=== PATIENT | female | born 1945 | race Caucasian/White ===

== ENCOUNTER 2016-09-12 18:59 | Inpatient (IN) | payer MEDICARE ==
[~2016-09-12] VITALS: Ht 154.9 cm; Wt 54.0 kg
[~2016-09-12 18:59] MED LIST: ASCO10004 PO; ASPI-496 PO; CETI10CA PO; CHOL10002 PO; DIPH25CA61 PO; FERR134T2 PO; FESO4TAB PO; GABA100C8 PO; LANS15CA45 PO; LEVO75TA PO; MONT10TA9 PO; MULT-658 PO; PANT40TA5 PO; RANI150T4 PO; SIMV10TA3 PO; SITA1TAB PO; TOPI50TA4 PO; VENL225T PO; VENL75CA6 PO; VITA1CAP PO
[2016-09-12 20:00] LABS: HEMOGLOBIN 13.9 g/dL (11.7-16.4)
[2016-09-12 20:09] LABS: BLOOD UREA NITROGEN 18 mg/dL (7-18)
[2016-09-12 20:13] LABS: ASPARTATE AMINO TRANSFERASE 15 U/L (15-37)
[2016-09-12] MEDS ORDERED: oxygen INH (20:55)
[2016-09-12] MEDS ORDERED: VENL75TA PO (20:55)
[2016-09-12] MEDS ORDERED: SITA1TAB5 PO (20:55)
[2016-09-12] MEDS ORDERED: SUMA100T4 PO (20:55)
[2016-09-12] MEDS ORDERED: FAMOTIDINE 20 MG/2 ML ONE (21:22)
[2016-09-12] MEDS ORDERED: MAALOX/HYOSCYAMINE/LIDOCAINE 45 ML BOTTLE ONE (21:22)
[2016-09-12] MEDS ORDERED: ONDANSETRON 2MG/ML, 2ML ONE (21:22)
[2016-09-12] MEDS ORDERED: SODIUM CHLORIDE FLUSH 10ML SYR IVF ONE (21:30)
[2016-09-12] MEDS ORDERED: ONDANSETRON 2MG/ML, 2ML IVPush ONE (21:30)
[2016-09-12] MEDS ORDERED: FAMOTIDINE 20 MG/2 ML IVP ONE (21:30)
[2016-09-12] MEDS ORDERED: SODIUM CHLORIDE 0.9% 1,000ML IVBOLUS ONE (21:30)
[2016-09-12] MEDS ORDERED: MAALOX/HYOSCYAMINE/LIDOCAINE 45 ML BOTTLE PO ONE (21:30)
[2016-09-12] MEDS ORDERED: CEFTRIAXONE PMX 1GM/50ML 50 ML IV ONE (22:00)
[2016-09-12] MEDS ORDERED: CEFTRIAXONE PMX 1GM/50ML 50 ML ONE (22:03)
[2016-09-13] MEDS ORDERED: LABETALOL 5MG/ML, 20ML IV PRN
[2016-09-13] MEDS ORDERED: TRAZODONE 50MG TABLET PO PRN
[2016-09-13] MEDS ORDERED: POLYETHYLENE GLYCOL 17 GM PACKET PO PRN
[2016-09-13] MEDS ORDERED: BISACODYL 10 MG SUPP PR PRN
[2016-09-13] MEDS ORDERED: ONDANSETRON ODT 4 MG PO PRN
[2016-09-13 00:22] VITALS: BP 121/74
[2016-09-13] MEDS: SUMATRIPTAN MC SCH ×4 (00:30→21:38)
[2016-09-13] MEDS: SODIUM CHLORIDE 0.9% 1,000 ML IV SCH ×2 (00:56→08:44)
[2016-09-13 01:05] VITALS: BP 132/68
[2016-09-13 05:14] VITALS: BP 143/81
[2016-09-13] MEDS: LEVOTHYROXINE 75 MCG TABLET PO SCH (05:54)
[2016-09-13] MEDS: ENOXAPARIN 40 MG/0.4 ML SQ SCH (05:55)
[2016-09-13 06:36] LABS: HEMOGLOBIN 13.2 g/dL (11.7-16.4)
[2016-09-13] MEDS: INSULIN ASPART 100 UNITS/ML, PEN SQ-INSULIN SCH ×4 (07:00→21:15)
[2016-09-13 07:03] LABS: ASPARTATE AMINO TRANSFERASE 21 U/L (15-37); BLOOD UREA NITROGEN 11 mg/dL (7-18)
[2016-09-13 07:27] VITALS: BP 126/78
[2016-09-13] MEDS: CHOLECALCIFEROL 1,000 UNIT TABLET PO SCH (08:46)
[2016-09-13] MEDS: MULTIVITAMIN 1 TABLET PO SCH (08:46)
[2016-09-13] MEDS: TOPIRAMATE 25 MG TABLET PO SCH ×2 (08:46→21:17)
[2016-09-13] MEDS: GABAPENTIN 100 MG CAPSULE PO SCH (08:46)
[2016-09-13] MEDS: VENLAFAXINE 75MG TABLET PO SCH ×2 (08:46→21:17)
[2016-09-13] MEDS: PANTOPROZOLE 40MG TABLET PO SCH (08:46)
[2016-09-13] MEDS: SUMATRIPTAN 50 MG TABLET PO SCH ×2 (08:46→21:17)
[2016-09-13] MEDS: FESOTERODINE FUMARATE 4 MG PO SCH (08:54)
[2016-09-13] MEDS: ACETAMINOPHEN 325 MG TABLET PO PRN ×2 (11:53→22:36)
[2016-09-13 14:29] VITALS: BP 130/76
[2016-09-13] MEDS ORDERED: ALBUTEROL SULFATE 2.5 MG/3 ML NPPB PRN (16:00)
[2016-09-13 18:58] VITALS: BP 101/66
[2016-09-13] MEDS: SIMVASTATIN 10 MG TABLET PO SCH (21:17)
[2016-09-13] MEDS: MONTELUKAST 10 MG TABLET PO SCH (21:17)
[2016-09-13] MEDS: CEFTRIAXONE PMX 2GM/50ML 50 ML IV SCH (21:30)
[2016-09-13] MEDS ORDERED: SODIUM CHLORIDE 0.9% 1,000 ML IV SCH (23:47)
[2016-09-14 02:25] VITALS: BP 138/92
[2016-09-14 06:08] LABS: BLOOD UREA NITROGEN 13 mg/dL (7-18)
[2016-09-14] MEDS: ENOXAPARIN 40 MG/0.4 ML SQ SCH (06:10)
[2016-09-14] MEDS: LEVOTHYROXINE 75 MCG TABLET PO SCH (06:10)
[2016-09-14 07:02] VITALS: BP 121/67
[2016-09-14] MEDS: SUMATRIPTAN MC SCH ×2 (08:30→16:30)
[2016-09-14] MEDS: SUMATRIPTAN 50 MG TABLET PO SCH ×2 (09:00→20:18)
[2016-09-14] MEDS: FESOTERODINE FUMARATE 4 MG PO SCH (09:00)
[2016-09-14] MEDS: GABAPENTIN 100 MG CAPSULE PO SCH (09:30)
[2016-09-14] MEDS: MULTIVITAMIN 1 TABLET PO SCH (09:30)
[2016-09-14] MEDS: CHOLECALCIFEROL 1,000 UNIT TABLET PO SCH (09:31)
[2016-09-14] MEDS: PANTOPROZOLE 40MG TABLET PO SCH (09:31)
[2016-09-14] MEDS: VENLAFAXINE 75MG TABLET PO SCH ×2 (09:31→20:17)
[2016-09-14] MEDS: TOPIRAMATE 25 MG TABLET PO SCH ×2 (09:31→20:14)
[2016-09-14] MEDS: DOCUSATE 100 MG CAPSULE PO PRN (09:31)
[2016-09-14] MEDS: INSULIN ASPART 100 UNITS/ML, PEN SQ-INSULIN SCH ×4 (09:43→20:20)
[2016-09-14] MEDS: ACETAMINOPHEN 325 MG TABLET PO PRN ×2 (11:26→23:16)
[2016-09-14 13:28] VITALS: BP 137/80
[2016-09-14 18:40] VITALS: BP 108/69
[2016-09-14] MEDS: MONTELUKAST 10 MG TABLET PO SCH (20:15)
[2016-09-14] MEDS: CEFDINIR 300 MG CAPSULE PO SCH (20:16)
[2016-09-14] MEDS: SIMVASTATIN 10 MG TABLET PO SCH (20:16)
[2016-09-14] MEDS: CEFTRIAXONE PMX 2GM/50ML 50 ML IV SCH (21:57)
[2016-09-15] MEDS: SUMATRIPTAN MC SCH ×2 (00:30→08:30)
[2016-09-15 00:49] VITALS: BP 147/71
[2016-09-15] MEDS: LEVOTHYROXINE 75 MCG TABLET PO SCH (05:02)
[2016-09-15] MEDS: ENOXAPARIN 40 MG/0.4 ML SQ SCH (05:02)
[2016-09-15 06:49] VITALS: BP 120/76
[2016-09-15] MEDS: INSULIN ASPART 100 UNITS/ML, PEN SQ-INSULIN SCH ×2 (07:00→12:21)
[2016-09-15] MEDS: FESOTERODINE FUMARATE 4 MG PO SCH (08:37)
[2016-09-15] MEDS: SUMATRIPTAN 50 MG TABLET PO SCH (09:00)
[2016-09-15] MEDS: GABAPENTIN 100 MG CAPSULE PO SCH (09:54)
[2016-09-15] MEDS: PANTOPROZOLE 40MG TABLET PO SCH (09:54)
[2016-09-15] MEDS: DOCUSATE 100 MG CAPSULE PO PRN (09:54)
[2016-09-15] MEDS: CEFDINIR 300 MG CAPSULE PO SCH (09:54)
[2016-09-15] MEDS: MULTIVITAMIN 1 TABLET PO SCH (09:55)
[2016-09-15] MEDS: VENLAFAXINE 75MG TABLET PO SCH (09:55)
[2016-09-15] MEDS: TOPIRAMATE 25 MG TABLET PO SCH (09:55)
[2016-09-15] MEDS: CHOLECALCIFEROL 1,000 UNIT TABLET PO SCH (09:57)
[2016-09-15] MEDS ORDERED: CEFD300C2 PO (11:35)
[2016-09-15 14:41] VITALS: BP 148/79
== END 2016-09-15 15:55 | DRG 690 ==
LOC: ED 22:33 → EDIP 22:34 → ED 23:07 → 4WST 09-13 00:11
PROVIDERS: ADMIT Internal Medicine; ATTEND Internal Medicine
PROC: 0T9B70Z Drainage of Bladder with Drainage Device, Via Natural or Artificial Opening (ICD-10-PCS; principal; 2016-09-12)
DX: N39.0 Urinary tract infection, site not specified (principal); E87.1 Hypo-osmolality and hyponatremia; E03.9 Hypothyroidism, unspecified; F32.9 Major depressive disorder, single episode, unspecified; E78.5 Hyperlipidemia, unspecified; F80.81 Childhood onset fluency disorder; J44.9 Chronic obstructive pulmonary disease, unspecified; K21.9 Gastro-esophageal reflux disease without esophagitis; I10 Essential (primary) hypertension; J45.909 Unspecified asthma, uncomplicated; E11.65 Type 2 diabetes mellitus with hyperglycemia; E55.9 Vitamin D deficiency, unspecified; N32.81 Overactive bladder; W18.30XA Fall on same level, unspecified, initial encounter; B99.9 Unspecified infectious disease; G89.29 Other chronic pain; M54.9 Dorsalgia, unspecified; G43.909 Migraine, unspecified, not intractable, without status migrainosus; Z91.041 Radiographic dye allergy status; Z91.012 Allergy to eggs; Z91.013 Allergy to seafood; Z83.3 Family history of diabetes mellitus; Z90.49 Acquired absence of other specified parts of digestive tract; Z90.710 Acquired absence of both cervix and uterus; Z80.9 Family history of malignant neoplasm, unspecified; Z82.49 Family history of ischemic heart disease and other diseases of the circulatory system; E86.1 Hypovolemia
CPT/HCPCS: 36415; 70450; 80048; 80053; 81001; 82962; 83036; 83735; 84439; 84443; 85025; 87086; 93005; 96365; 96375; J0696; J1650; J1815; J2405; J7030; S0028

== ENCOUNTER 2016-11-18 13:01 | Inpatient (IN) | payer MEDICARE ==
[~2016-11-18] VITALS: Ht 154.9 cm; Wt 55.9 kg
[~2016-11-18 13:01] MED LIST changes: +CEFD300C37 PO; +SITA1TAB5 PO; +SUMA100T4 PO; -TOPI50TA4 PO; +TOPI50TA77 PO; +VENL75TA PO; +oxygen INH
[2016-11-18] MEDS ORDERED: MECLIZINE CHEWABLE 25 MG TAB PO ONE (13:30)
[2016-11-18] MEDS ORDERED: SODIUM CHLORIDE FLUSH 10ML SYR IVF ONE (13:30)
[2016-11-18] MEDS ORDERED: ASPIRIN 81 MG TABLET CHEW PO ONE (13:30)
[2016-11-18] MEDS ORDERED: SODIUM CHLORIDE 0.9% 1,000ML IVBOLUS ONE (13:30)
[2016-11-18] MEDS ORDERED: MECLIZINE CHEWABLE 25 MG TAB ONE (13:32)
[2016-11-18] MEDS ORDERED: ASPIRIN 81 MG TABLET CHEW ONE (13:32)
[2016-11-18 13:54] LABS: BLOOD UREA NITROGEN 10 mg/dL (7-18)
[2016-11-18 14:01] LABS: ASPARTATE AMINO TRANSFERASE 19 U/L (15-37)
[2016-11-18 14:03] LABS: IS PT STATUS REG ER OR PRE ER? YES
[2016-11-18] MEDS ORDERED: ASPIRIN 325 MG TABLET EC PO ONE (17:00)
[2016-11-18] MEDS ORDERED: ACETAMINOPHEN 650 MG/20.3 ML UDC PO PRN (17:00)
[2016-11-18] MEDS ORDERED: SODIUM CHLORIDE 0.9% 1,000 ML IV SCH ×2 (17:30→19:59)
[2016-11-18] MEDS: INSULIN ASPART 100 UNITS/ML, PEN SQ-INSULIN SCH ×2 (17:30→22:53)
[2016-11-18] MEDS ORDERED: GLUCAGON 1 MG IM PRN (17:30)
[2016-11-18] MEDS ORDERED: DEXTROSE 50%, 50ML SYRINGE IVPush PRN (17:30)
[2016-11-18] MEDS ORDERED: DEXTROSE 4 GM TAB.CHEW PO PRN (17:30)
[2016-11-18] MEDS ORDERED: ASPIRIN 325 MG TABLET ONE (18:20)
[2016-11-18] MEDS ORDERED: ENOXAPARIN 40 MG/0.4 ML ONE (18:20)
[2016-11-18] MEDS: ENOXAPARIN 40 MG/0.4 ML SQ SCH (18:24)
[2016-11-18] MEDS: SODIUM CHLORIDE FLUSH 10ML SYR IVF SCH (21:00)
[2016-11-18] MEDS: SUMATRIPTAN 50 MG TABLET PO PRN (21:05)
[2016-11-18] MEDS: SIMVASTATIN 10 MG TABLET PO SCH (22:29)
[2016-11-18] MEDS: MONTELUKAST 10 MG TABLET PO SCH (22:29)
[2016-11-18] MEDS: VENLAFAXINE 75MG TABLET PO SCH (22:29)
[2016-11-18] MEDS ORDERED: GABAPENTIN 100 MG CAPSULE PO SCH (22:30)
[2016-11-18] MEDS ORDERED: ACETAMINOPHEN 325 MG TABLET ONE (22:42)
[2016-11-18] MEDS: DIAZEPAM 5 MG TABLET PO PRN (22:48)
[2016-11-18] MEDS: GABAPENTIN 100 MG CAPSULE PO SCH (22:52)
[2016-11-18 23:15] VITALS: BP 130/81
[2016-11-19] MEDS ORDERED: ACETAMINOPHEN 325 MG TABLET PO PRN (00:30)
[2016-11-19 03:46] VITALS: BP 156/87
[2016-11-19 03:54] LABS: ASPARTATE AMINO TRANSFERASE 16 U/L (15-37); BLOOD UREA NITROGEN 12 mg/dL (7-18)
[2016-11-19 03:57] LABS: IS PT STATUS REG ER OR PRE ER? NO
[2016-11-19] MEDS: INSULIN ASPART 100 UNITS/ML, PEN SQ-INSULIN SCH ×4 (07:00→21:17)
[2016-11-19] MEDS: PANTOPROZOLE 40MG TABLET PO SCH (08:35)
[2016-11-19] MEDS: VENLAFAXINE 75MG TABLET PO SCH ×2 (08:35→21:13)
[2016-11-19] MEDS: LEVOTHYROXINE 75 MCG TABLET PO SCH (08:35)
[2016-11-19] MEDS: MULTIVITAMIN 1 TABLET PO SCH (08:35)
[2016-11-19] MEDS: SODIUM CHLORIDE FLUSH 10ML SYR IVF SCH ×3 (08:36→21:12)
[2016-11-19 08:59] VITALS: BP 125/78
[2016-11-19] MEDS ORDERED: FESOTERODINE FUMARATE 4 MG PO SCH (09:00)
[2016-11-19] MEDS ORDERED: GABAPENTIN 100 MG CAPSULE PO SCH (09:00)
[2016-11-19 09:38] LABS: IS PT STATUS REG ER OR PRE ER? NO
[2016-11-19] MEDS: SUMATRIPTAN 50 MG TABLET PO PRN ×2 (10:35→22:01)
[2016-11-19] MEDS: DIAZEPAM 5 MG TABLET PO PRN (12:10)
[2016-11-19] MEDS ORDERED: REGADENOSON 0.4 MG/5 ML SYRINGE ONE (12:33)
[2016-11-19] MEDS ORDERED: GADOBUTROL 7.5 MMOL/7.5 ML PFS ONE (12:38)
[2016-11-19 15:11] VITALS: BP 136/80
[2016-11-19] MEDS: ENOXAPARIN 40 MG/0.4 ML SQ SCH (17:17)
[2016-11-19 18:32] VITALS: BP 117/48
[2016-11-19] MEDS: SIMVASTATIN 10 MG TABLET PO SCH (21:13)
[2016-11-19] MEDS: GABAPENTIN 100 MG CAPSULE PO SCH (21:13)
[2016-11-19] MEDS: MONTELUKAST 10 MG TABLET PO SCH (21:13)
[2016-11-20 01:30] VITALS: BP 140/77
[2016-11-20 09:30] VITALS: BP 146/85
[2016-11-20] MEDS: SODIUM CHLORIDE FLUSH 10ML SYR IVF SCH (09:30)
[2016-11-20] MEDS: INSULIN ASPART 100 UNITS/ML, PEN SQ-INSULIN SCH ×2 (09:30→13:07)
[2016-11-20] MEDS: LEVOTHYROXINE 75 MCG TABLET PO SCH (09:30)
[2016-11-20] MEDS: MULTIVITAMIN 1 TABLET PO SCH (09:30)
[2016-11-20] MEDS: VENLAFAXINE 75MG TABLET PO SCH (09:30)
[2016-11-20] MEDS: PANTOPROZOLE 40MG TABLET PO SCH (09:30)
[2016-11-20] MEDS: SUMATRIPTAN 50 MG TABLET PO PRN (16:39)
== END 2016-11-20 17:22 | disposition home health service (06) | DRG 92 ==
LOC: ED 13:55 → EDIP 15:45 → 5SO 19:50
PROVIDERS: ADMIT Family Medicine; ATTEND Family Medicine
DX: R27.0 Ataxia, unspecified (principal); I24.9 Acute ischemic heart disease, unspecified; E44.1 Mild protein-calorie malnutrition; I50.30 Unspecified diastolic (congestive) heart failure; R42 Dizziness and giddiness; E03.9 Hypothyroidism, unspecified; E11.65 Type 2 diabetes mellitus with hyperglycemia; E78.5 Hyperlipidemia, unspecified; F32.9 Major depressive disorder, single episode, unspecified; F80.81 Childhood onset fluency disorder; G43.909 Migraine, unspecified, not intractable, without status migrainosus; G89.29 Other chronic pain; M54.9 Dorsalgia, unspecified; J44.9 Chronic obstructive pulmonary disease, unspecified; K21.9 Gastro-esophageal reflux disease without esophagitis; M25.78 Osteophyte, vertebrae; Z83.3 Family history of diabetes mellitus; Z86.73 Personal history of transient ischemic attack (TIA), and cerebral infarction without residual deficits; I11.0 Hypertensive heart disease with heart failure; Z68.23 Body mass index [BMI] 23.0-23.9, adult; Z88.3 Allergy status to other anti-infective agents; Z91.013 Allergy to seafood; Z91.018 Allergy to other foods
CPT/HCPCS: 36415; 70450; 70553; 71010; 72125; 78452; 80053; 80061; 81003; 82962; 83036; 83880; 84484; 85025; 85610; 93005; 93017; 93306; 93880; 96360; A9585; J1650; J1815; J2785; 92522-GN; A9502; C9898; J7030

== ENCOUNTER 2017-01-03 16:25 | Inpatient (IN) | payer MEDICARE ==
[~2017-01-03] VITALS: Ht 154.9 cm; Wt 53.5 kg
[~2017-01-03 16:25] MED LIST changes: +GABA-826 PO; -GABA100C8 PO
[2017-01-03] MEDS ORDERED: SODIUM CHLORIDE 0.9% 1,000ML IVBOLUS ONE ×2 (17:30→20:30)
[2017-01-03] MEDS ORDERED: DIPHENHYDRAMINE 50 MG/ML, 1ML ONE (17:30)
[2017-01-03] MEDS ORDERED: DIPHENHYDRAMINE 50 MG/ML, 1ML IVPush ONE ×2 (17:30→20:30)
[2017-01-03] MEDS ORDERED: SODIUM CHLORIDE FLUSH 10ML SYR IVF ONE (17:30)
[2017-01-03] MEDS ORDERED: METOCLOPRAMIDE 5 MG/ML, 2ML IVPush ONE (17:30)
[2017-01-03] MEDS ORDERED: METOCLOPRAMIDE 5 MG/ML, 2ML ONE (17:30)
[2017-01-03] MEDS ORDERED: KETOROLAC 30 MG/1 ML ONE (17:45)
[2017-01-03] MEDS ORDERED: KETOROLAC 30 MG/1 ML IVPush ONE ×2 (18:00→20:30)
[2017-01-03 18:12] LABS: BLOOD UREA NITROGEN 15 mg/dL (7-18)
[2017-01-03 18:17] LABS: IS PT STATUS REG ER OR PRE ER? YES
[2017-01-03] MEDS ORDERED: GLUCAGON 1 MG IM PRN (20:30)
[2017-01-03] MEDS ORDERED: PROCHLORPERAZINE 5 MG/ML, 2ML IVPush ONE (20:30)
[2017-01-03] MEDS ORDERED: BISACODYL 10 MG SUPP PR PRN (20:30)
[2017-01-03] MEDS ORDERED: DEXTROSE 4 GM TAB.CHEW PO PRN (20:30)
[2017-01-03] MEDS ORDERED: ONDANSETRON 2MG/ML, 2ML IVPush PRN (20:30)
[2017-01-03] MEDS ORDERED: DOCUSATE 100 MG CAPSULE PO PRN (20:30)
[2017-01-03] MEDS ORDERED: DEXTROSE 50%, 50ML SYRINGE IVPush PRN (20:30)
[2017-01-03] MEDS ORDERED: LABETALOL 5MG/ML 40ML VIAL IVPush PRN (20:30)
[2017-01-03] MEDS ORDERED: POLYETHYLENE GLYCOL 17 GM PACKET PO PRN (20:30)
[2017-01-03] MEDS: SODIUM CHLORIDE FLUSH 10ML SYR IVF SCH (21:00)
[2017-01-03] MEDS ORDERED: SUMATRIPTAN 50 MG TABLET PO SCH (21:00)
[2017-01-03] MEDS ORDERED: OXYGEN INH SCH (21:00)
[2017-01-03 22:18] VITALS: BP 147/84
[2017-01-04] MEDS: SODIUM CHLORIDE FLUSH 10ML SYR IVF SCH ×5 (00:15→21:53)
[2017-01-04] MEDS: ENOXAPARIN 40 MG/0.4 ML SQ SCH (00:15)
[2017-01-04] MEDS: VENLAFAXINE 75MG TABLET PO SCH ×3 (00:15→21:54)
[2017-01-04] MEDS: TOPIRAMATE 25 MG TABLET PO SCH ×2 (00:16→08:19)
[2017-01-04] MEDS: SIMVASTATIN 10 MG TABLET PO SCH ×2 (00:16→21:54)
[2017-01-04] MEDS: INSULIN ASPART 100 UNITS/ML, PEN SQ-INSULIN SCH ×5 (00:54→21:54)
[2017-01-04 01:10] VITALS: BP 138/72
[2017-01-04] MEDS: ACETAMINOPHEN 325 MG TABLET PO PRN ×2 (04:58→11:14)
[2017-01-04] MEDS: LEVOTHYROXINE 75 MCG TABLET PO SCH (05:50)
[2017-01-04 06:02] LABS: BLOOD UREA NITROGEN 15 mg/dL (7-18)
[2017-01-04 07:36] VITALS: BP 147/76
[2017-01-04] MEDS: MULTIVITS,STRESS FORMULA 1 TABLET PO SCH (08:19)
[2017-01-04] MEDS: GABAPENTIN 100 MG CAPSULE PO SCH (08:19)
[2017-01-04] MEDS: OXYBUTYNIN CHLORIDE 5 MG TABLET PO SCH ×2 (08:19→21:54)
[2017-01-04] MEDS: ASCORBIC ACID 500 MG TABLET PO SCH (08:19)
[2017-01-04] MEDS: CHOLECALCIFEROL 1,000 UNIT TABLET PO SCH (08:19)
[2017-01-04] MEDS: MULTIVITAMIN 1 TABLET PO SCH (08:19)
[2017-01-04 12:55] VITALS: BP 132/77
[2017-01-04] MEDS ORDERED: VALPROATE SODIUM 250 MG in DEXTROSE 5% 100 ML IV PRN (15:00)
[2017-01-04] MEDS ORDERED: DIPHENHYDRAMINE 25 MG CAPSULE PO ONE ×2 (15:00)
[2017-01-04] MEDS ORDERED: VALPROATE SODIUM 500 MG in DEXTROSE 5% 100 ML IV PRN (15:00)
[2017-01-04] MEDS ORDERED: SUMATRIPTAN 6MG/0.5ML SQ ONE (15:00)
[2017-01-04] MEDS: DIVALPROEX 250 MG TABLET.DR PO SCH ×2 (17:02→21:54)
[2017-01-04 19:31] VITALS: BP 159/80
[2017-01-05] MEDS: ENOXAPARIN 40 MG/0.4 ML SQ SCH ×2 (00:04→23:30)
[2017-01-05 01:47] VITALS: BP 134/80
[2017-01-05] MEDS: LEVOTHYROXINE 75 MCG TABLET PO SCH (05:41)
[2017-01-05 07:06] VITALS: BP 126/76
[2017-01-05] MEDS: SODIUM CHLORIDE FLUSH 10ML SYR IVF SCH ×4 (08:24→20:29)
[2017-01-05] MEDS: INSULIN ASPART 100 UNITS/ML, PEN SQ-INSULIN SCH ×4 (08:28→20:26)
[2017-01-05] MEDS: DIVALPROEX 250 MG TABLET.DR PO SCH ×3 (08:29→20:28)
[2017-01-05] MEDS: ASCORBIC ACID 500 MG TABLET PO SCH (08:29)
[2017-01-05] MEDS: MULTIVITAMIN 1 TABLET PO SCH (08:29)
[2017-01-05] MEDS: OXYBUTYNIN CHLORIDE 5 MG TABLET PO SCH ×2 (08:29→20:28)
[2017-01-05] MEDS: VENLAFAXINE 75MG TABLET PO SCH ×2 (08:29→20:27)
[2017-01-05] MEDS: MULTIVITS,STRESS FORMULA 1 TABLET PO SCH (08:29)
[2017-01-05] MEDS: CHOLECALCIFEROL 1,000 UNIT TABLET PO SCH (08:29)
[2017-01-05] MEDS: GABAPENTIN 100 MG CAPSULE PO SCH (08:29)
[2017-01-05] MEDS: VALPROATE SODIUM 500 MG in DEXTROSE 5% 100 ML IV PRN ×2 (13:15→21:35)
[2017-01-05 14:42] VITALS: BP 122/72
[2017-01-05 18:57] VITALS: BP 120/77
[2017-01-05] MEDS: SIMVASTATIN 10 MG TABLET PO SCH (20:27)
[2017-01-06 02:29] VITALS: BP 119/77
[2017-01-06] MEDS: LEVOTHYROXINE 75 MCG TABLET PO SCH (05:26)
[2017-01-06 07:17] VITALS: BP 121/65
[2017-01-06] MEDS: INSULIN ASPART 100 UNITS/ML, PEN SQ-INSULIN SCH ×2 (07:40→11:00)
[2017-01-06] MEDS: SODIUM CHLORIDE FLUSH 10ML SYR IVF SCH ×2 (07:41)
[2017-01-06] MEDS: DIVALPROEX 250 MG TABLET.DR PO SCH (08:22)
[2017-01-06] MEDS: OXYBUTYNIN CHLORIDE 5 MG TABLET PO SCH (08:22)
[2017-01-06] MEDS: MULTIVITS,STRESS FORMULA 1 TABLET PO SCH (08:22)
[2017-01-06] MEDS: VENLAFAXINE 75MG TABLET PO SCH (08:22)
[2017-01-06] MEDS: MULTIVITAMIN 1 TABLET PO SCH (08:23)
[2017-01-06] MEDS: CHOLECALCIFEROL 1,000 UNIT TABLET PO SCH (08:23)
[2017-01-06] MEDS: GABAPENTIN 100 MG CAPSULE PO SCH (08:23)
[2017-01-06] MEDS: ASCORBIC ACID 500 MG TABLET PO SCH (08:23)
[2017-01-06] MEDS ORDERED: DIVA250T6 PO (12:16)
[2017-01-06] MEDS ORDERED: DOCU-30 PO (12:16)
[2017-01-06 12:39] VITALS: BP 128/74
== END 2017-01-06 15:45 | disposition home or self-care (01) | DRG 103 ==
LOC: ED 17:14 → EDIP 19:33 → 3NE 21:00 → DCLOUNGE 01-06 15:45
PROVIDERS: ADMIT Internal Medicine; ATTEND Internal Medicine
DX: G43.901 Migraine, unspecified, not intractable, with status migrainosus (principal); E87.1 Hypo-osmolality and hyponatremia; R27.0 Ataxia, unspecified; E03.9 Hypothyroidism, unspecified; E78.5 Hyperlipidemia, unspecified; G89.29 Other chronic pain; E11.65 Type 2 diabetes mellitus with hyperglycemia; I10 Essential (primary) hypertension; J44.9 Chronic obstructive pulmonary disease, unspecified; F32.9 Major depressive disorder, single episode, unspecified; H53.149 Visual discomfort, unspecified; M54.9 Dorsalgia, unspecified; Z91.81 History of falling; Z90.49 Acquired absence of other specified parts of digestive tract; Z82.49 Family history of ischemic heart disease and other diseases of the circulatory system; Z83.3 Family history of diabetes mellitus; Z90.710 Acquired absence of both cervix and uterus; Z79.899 Other long term (current) drug therapy; Z79.84 Long term (current) use of oral hypoglycemic drugs; Z88.8 Allergy status to other drugs, medicaments and biological substances; Z91.012 Allergy to eggs; Z91.013 Allergy to seafood; Z87.440 Personal history of urinary (tract) infections
CPT/HCPCS: 36415; 70450; 71010; 80048; 82040; 82962; 84484; 85025; 85610; 85730; 93005; 96361; 96374; 96375; J1650; J1815; J1885; J2405; J1200; J2765; J3030; J7030; Q0163

== ENCOUNTER 2017-02-27 13:37 | Emergency (ER) | payer MEDICARE ==
[~2017-02-27] VITALS: Ht 154.9 cm; Wt 54.9 kg
[~2017-02-27 13:37] MED LIST changes: +DIVA250T6 PO; +DOCU-131 PO; -LANS15CA45 PO; +LANS15CA60 PO; -TOPI50TA77 PO; +TOPI50TA8 PO
[2017-02-27] MEDS ORDERED: OXYcodone/APAP 5/325MG TABLET PO ONE (15:00)
[2017-02-27] MEDS ORDERED: OXYcodone/APAP 5/325MG TABLET ONE (15:00)
[2017-02-27 16:37] VITALS: BP 151/75
== END 2017-02-27 16:53 | disposition home or self-care (01) ==
LOC: ED 16:47
DX: S42.032A Displaced fracture of lateral end of left clavicle, initial encounter for closed fracture (principal); S16.1XXA Strain of muscle, fascia and tendon at neck level, initial encounter; J44.9 Chronic obstructive pulmonary disease, unspecified; E11.9 Type 2 diabetes mellitus without complications; E78.5 Hyperlipidemia, unspecified; E03.9 Hypothyroidism, unspecified; I10 Essential (primary) hypertension; K21.9 Gastro-esophageal reflux disease without esophagitis; Z90.710 Acquired absence of both cervix and uterus; Z90.49 Acquired absence of other specified parts of digestive tract; W06.XXXA Fall from bed, initial encounter; Y93.89 Activity, other specified; Y92.009 Unspecified place in unspecified non-institutional (private) residence as the place of occurrence of the external cause; Y99.9 Unspecified external cause status
CPT/HCPCS: 70450; 71020; 72125; 99284

== ENCOUNTER 2018-01-24 18:19 | Inpatient (IN) | payer MEDICARE ==
[~2018-01-24] VITALS: Ht 154.9 cm; Wt 48.0 kg
[~2018-01-24 18:19] MED LIST changes: +DIVA-59 PO; -DIVA250T6 PO
[2018-01-24] MEDS ORDERED: SODIUM CHLORIDE 0.9% 1,000ML IVBOLUS ONE (19:30)
[2018-01-24] MEDS ORDERED: DIPHENHYDRAMINE 50 MG/ML, 1ML ONE (19:45)
[2018-01-24] MEDS ORDERED: OMNIPAQUE 350 MG/ML, 100ML BOTTLE ONE (20:09)
[2018-01-24 20:38] LABS: BASOPHILS # (AUTO) 0.03 x10^3/uL (0-0.1); BASOPHILS % (AUTO) 1 % (0-1); EOSINOPHILS # (AUTO) 0.06 x10^3/uL (0-0.4); EOSINOPHILS % (AUTO) 1 % (1-7); LYMPHOCYTES # (AUTO) 1.78 x10^3/uL (1-3.4); LYMPHOCYTES % (AUTO) 38 % (22-44); MD NO; MEAN CORPUSCULAR HEMOGLOBIN 33.9 pg (27.0-34.8); MEAN CORPUSCULAR HGB CONC 35.6 g/dL (32.4-35.8); MEAN CORPUSCULAR VOLUME 95.3 fL (80-100); MEAN PLATELET VOLUME 8.2 fL (7.4-10.4); MONOCYTES # (AUTO) 0.35 x10^3/uL (0.2-0.8); MONOCYTES % (AUTO) 8 % (2-9); NEUTROPHILS # (AUTO) 2.47 x10^3/uL (1.8-6.8); NEUTROPHILS % (AUTO) 53 % (42-75); PLATELET COUNT 158 x10^3/uL (130-400); RED BLOOD COUNT 3.56 x10^6/uL (3.82-5.3); RED CELL DISTRIBUTION WIDTH 13.7 % (9.6-15.2)
[2018-01-24] MEDS ORDERED: ALTEPLASE 1 MG/ML ONE (20:44)
[2018-01-24 20:47] LABS: ALANINE AMINOTRANSFERASE 14 U/L (12-78); ALBUMIN 3.1 g/dL (3.4-5.0); ANION GAP 10 mmol/L (5-15); CALCIUM 8.1 mg/dL (8.5-10.1); CHLORIDE 96 mmol/L (98-107); CREATININE 1.22 mg/dL (0.55-1.02)
[2018-01-24 20:49] LABS: ALKALINE PHOSPHATASE 58 U/L (45-117); BILIRUBIN,TOTAL 0.7 mg/dL (0.2-1.0); TOTAL PROTEIN 5.6 g/dL (6.4-8.2)
[2018-01-24 20:55] LABS: INTERNATIONAL NORMALIZED RATIO 1.11 (0.93-1.1); PROTHROMBIN TIME 11.5 Seconds (9.6-11.5)
[2018-01-24 20:59] LABS: MICROSCOPIC AUTO
[2018-01-24] MEDS ORDERED: ALTEPLASE IVPush ONE (21:00)
[2018-01-24] MEDS ORDERED: ALTEPLASE IV ONE (21:00)
[2018-01-24 21:04] LABS: CULTURE INDICATED? YES
[2018-01-24] MEDS ORDERED: ONDANSETRON 4 MG TABLET PO PRN (21:30)
[2018-01-24] MEDS ORDERED: ACETAMINOPHEN 650 MG/20.3 ML UDC PO PRN (21:30)
[2018-01-24] MEDS ORDERED: POLYETHYLENE GLYCOL 17 GM PACKET PO PRN (21:30)
[2018-01-24 23:35] VITALS: BP 109/70
[2018-01-25] MEDS: SODIUM CHLORIDE 0.9% 1,000 ML IV SCH ×2 (00:10→11:56)
[2018-01-25 04:00] VITALS: BP 135/90
[2018-01-25 05:05] LABS: CHOL/HDL RATIO 2.5; LDL/HDL RATIO 1.1 (0.5-3.0)
[2018-01-25] MEDS ORDERED: ASPIRIN 325 MG TABLET PO SCH (06:00)
[2018-01-25 06:25] LABS: ALANINE AMINOTRANSFERASE 15 U/L (12-78); ALBUMIN 3.2 g/dL (3.4-5.0); ANION GAP 11 mmol/L (5-15); CALCIUM 8.3 mg/dL (8.5-10.1); CHLORIDE 107 mmol/L (98-107); CREATININE 1.17 mg/dL (0.55-1.02)
[2018-01-25 06:27] LABS: ALKALINE PHOSPHATASE 55 U/L (45-117); BILIRUBIN,TOTAL 0.5 mg/dL (0.2-1.0)
[2018-01-25] MEDS ORDERED: LORazepam 2 MG/ML, 1ML IVPush PRN (08:30)
[2018-01-25] MEDS ORDERED: SUMATRIPTAN 100 MG TABLET PO PRN (11:00)
[2018-01-25] MEDS: DIVALPROEX 250 MG TABLET.DR PO SCH ×3 (11:56→20:22)
[2018-01-25] MEDS: ATORVASTATIN 40 MG TABLET PO SCH (20:22)
[2018-01-25] MEDS: TOPIRAMATE 100 MG TABLET PO SCH (20:22)
[2018-01-26 02:00] VITALS: BP 134/63
[2018-01-26] MEDS: ASPIRIN 81 MG TABLET EC PO SCH (04:33)
[2018-01-26 05:05] LABS: BASOPHILS # (AUTO) 0.04 x10^3/uL (0-0.1); BASOPHILS % (AUTO) 1 % (0-1); EOSINOPHILS % (AUTO) 5 % (1-7); LYMPHOCYTES % (AUTO) 52 % (22-44); MD NO; MEAN CORPUSCULAR HEMOGLOBIN 32.7 pg (27.0-34.8); MEAN CORPUSCULAR HGB CONC 34.1 g/dL (32.4-35.8); MEAN CORPUSCULAR VOLUME 95.9 fL (80-100); MEAN PLATELET VOLUME 8.8 fL (7.4-10.4); MONOCYTES % (AUTO) 7 % (2-9); NEUTROPHILS # (AUTO) 1.39 x10^3/uL (1.8-6.8); NEUTROPHILS % (AUTO) 35 % (42-75); PLATELET COUNT 153 x10^3/uL (130-400); RED BLOOD COUNT 3.87 x10^6/uL (3.82-5.3); RED CELL DISTRIBUTION WIDTH 13.8 % (9.6-15.2)
[2018-01-26 05:07] LABS: ANION GAP 10 mmol/L (5-15); CALCIUM 8.2 mg/dL (8.5-10.1); CHLORIDE 111 mmol/L (98-107); CREATININE 0.95 mg/dL (0.55-1.02)
[2018-01-26] MEDS: ENOXAPARIN 40 MG/0.4 ML SQ SCH (08:45)
[2018-01-26] MEDS: DIVALPROEX 250 MG TABLET.DR PO SCH ×3 (08:45→21:22)
[2018-01-26] MEDS: TOPIRAMATE 100 MG TABLET PO SCH ×2 (08:45→21:22)
[2018-01-26 10:42] VITALS: BP 101/58
[2018-01-26] MEDS ORDERED: ATOR40TA78 PO (11:38)
[2018-01-26] MEDS ORDERED: ASPI-621 PO (11:38)
[2018-01-26] MEDS ORDERED: TOPI100T24 PO (11:38)
[2018-01-26] MEDS ORDERED: POTASSIUM CHLORIDE 20 MEQ TAB.ER.PRT PO ONE (14:30)
[2018-01-26 14:36] VITALS: BP 148/64
[2018-01-26 19:26] VITALS: BP 141/83
[2018-01-26] MEDS: ATORVASTATIN 40 MG TABLET PO SCH (21:22)
[2018-01-26] MEDS: ONDANSETRON 2MG/ML, 2ML IVPush PRN (21:22)
[2018-01-27 01:54] VITALS: BP 109/76
[2018-01-27] MEDS: ASPIRIN 81 MG TABLET EC PO SCH (06:00)
[2018-01-27 07:21] VITALS: BP 116/73
[2018-01-27] MEDS: ENOXAPARIN 40 MG/0.4 ML SQ SCH (08:57)
[2018-01-27] MEDS: TOPIRAMATE 100 MG TABLET PO SCH ×2 (08:57→20:18)
[2018-01-27] MEDS: DIVALPROEX 250 MG TABLET.DR PO SCH ×3 (08:58→20:19)
[2018-01-27 13:08] VITALS: BP 111/67
[2018-01-27] MEDS: ONDANSETRON 2MG/ML, 2ML IVPush PRN (16:49)
[2018-01-27 19:22] VITALS: BP 150/85
[2018-01-27] MEDS: ATORVASTATIN 40 MG TABLET PO SCH (20:18)
[2018-01-27] MEDS: ONDANSETRON ODT 4 MG PO PRN (20:19)
[2018-01-28 04:00] VITALS: BP 107/68
[2018-01-28] MEDS: ASPIRIN 81 MG TABLET EC PO SCH (05:45)
[2018-01-28 07:05] VITALS: BP 121/60
[2018-01-28] MEDS: TOPIRAMATE 100 MG TABLET PO SCH ×2 (09:07→21:12)
[2018-01-28] MEDS: DIVALPROEX 250 MG TABLET.DR PO SCH ×3 (09:07→21:11)
[2018-01-28] MEDS: ENOXAPARIN 40 MG/0.4 ML SQ SCH (09:08)
[2018-01-28 12:28] VITALS: BP 114/77
[2018-01-28] MEDS: ONDANSETRON ODT 4 MG PO PRN (14:20)
[2018-01-28] MEDS: ONDANSETRON 2MG/ML, 2ML IVPush PRN (15:08)
[2018-01-28 19:10] VITALS: BP 113/67
[2018-01-28] MEDS: ATORVASTATIN 40 MG TABLET PO SCH (21:12)
[2018-01-29 02:00] VITALS: BP 108/73
[2018-01-29] MEDS: ASPIRIN 81 MG TABLET EC PO SCH (05:32)
[2018-01-29 07:17] VITALS: BP 128/75
[2018-01-29] MEDS: TOPIRAMATE 100 MG TABLET PO SCH ×2 (08:53→20:03)
[2018-01-29] MEDS: DIVALPROEX 250 MG TABLET.DR PO SCH ×3 (08:53→20:03)
[2018-01-29] MEDS: ENOXAPARIN 40 MG/0.4 ML SQ SCH (08:53)
[2018-01-29 12:00] VITALS: BP 118/74
[2018-01-29] MEDS: ALUMINUM/MAG/SIMETHICONE 30 ML UDC PO PRN ×2 (14:00→17:43)
[2018-01-29] MEDS: ATORVASTATIN 40 MG TABLET PO SCH (20:03)
[2018-01-29 20:34] VITALS: BP 104/69
== END 2018-01-29 21:00 | disposition home health service (06) | DRG 62 ==
LOC: ED 19:26 → SUATTDRO 20:57 → EDIP 21:26 → CCU 22:50 → 4WST 01-26 06:47
PROVIDERS: ADMIT Hospitalist; ATTEND Hospitalist
DX: G45.9 Transient cerebral ischemic attack, unspecified (principal); E87.1 Hypo-osmolality and hyponatremia; E44.0 Moderate protein-calorie malnutrition; R47.01 Aphasia; F32.9 Major depressive disorder, single episode, unspecified; G89.29 Other chronic pain; M54.9 Dorsalgia, unspecified; R35.0 Frequency of micturition; E03.9 Hypothyroidism, unspecified; E11.40 Type 2 diabetes mellitus with diabetic neuropathy, unspecified; E78.5 Hyperlipidemia, unspecified; E87.5 Hyperkalemia; G43.909 Migraine, unspecified, not intractable, without status migrainosus; I10 Essential (primary) hypertension; J44.9 Chronic obstructive pulmonary disease, unspecified; N28.9 Disorder of kidney and ureter, unspecified; S42.032A Displaced fracture of lateral end of left clavicle, initial encounter for closed fracture; G31.9 Degenerative disease of nervous system, unspecified; R29.702 NIHSS score 2; Z68.20 Body mass index [BMI] 20.0-20.9, adult; Z79.84 Long term (current) use of oral hypoglycemic drugs; Z79.82 Long term (current) use of aspirin; Z79.899 Other long term (current) drug therapy; Z82.3 Family history of stroke; Z82.49 Family history of ischemic heart disease and other diseases of the circulatory system; Z83.3 Family history of diabetes mellitus; Z86.73 Personal history of transient ischemic attack (TIA), and cerebral infarction without residual deficits; Z90.710 Acquired absence of both cervix and uterus
CPT/HCPCS: 36415; 70450; 70496; 70498; 70551; 71045; 80047; 80048; 80053; 80061; 81001; 83605; 83690; 83735; 85025; 85610; 85730; 87077; 87081; 87086; 93005; 93306; 99285; J1650; J2405; J2997; Q0162; Q9967; 92523-GN; J2060; J7030

== ENCOUNTER 2018-04-24 12:25 | Emergency (ER) | payer MEDICARE ==
[~2018-04-24] VITALS: Ht 154.9 cm; Wt 48.2 kg
[~2018-04-24 12:25] MED LIST changes: +ASPI-621 PO; +ATOR40TA78 PO; +TOPI100T24 PO
[2018-04-24 13:11] LABS: BASOPHILS # (AUTO) 0.02 x10^3/uL (0-0.1); BASOPHILS % (AUTO) 0 % (0-1); EOSINOPHILS # (AUTO) 0.01 x10^3/uL (0-0.4); EOSINOPHILS % (AUTO) 0 % (1-7); LYMPHOCYTES # (AUTO) 1.13 x10^3/uL (1-3.4); LYMPHOCYTES % (AUTO) 19 % (22-44); MD NO; MEAN CORPUSCULAR HEMOGLOBIN 33.7 pg (27.0-34.8); MEAN CORPUSCULAR HGB CONC 34.7 g/dL (32.4-35.8); MEAN CORPUSCULAR VOLUME 97.2 fL (80-100); MONOCYTES # (AUTO) 0.34 x10^3/uL (0.2-0.8); MONOCYTES % (AUTO) 6 % (2-9); NEUTROPHILS # (AUTO) 4.39 x10^3/uL (1.8-6.8); NEUTROPHILS % (AUTO) 75 % (42-75); PLATELET COUNT 193 x10^3/uL (130-400); RED BLOOD COUNT 4.09 x10^6/uL (3.82-5.3); RED CELL DISTRIBUTION WIDTH 12.7 % (9.6-15.2)
[2018-04-24 13:12] LABS: PH, VENOUS 7.345 pH (7.320-7.420)
[2018-04-24 13:13] LABS: FIO2 ROOM AIR %
[2018-04-24 13:23] LABS: ALANINE AMINOTRANSFERASE 29 U/L (12-78); ALBUMIN 3.1 g/dL (3.4-5.0); ANION GAP 12 mmol/L (5-15); CALCIUM 8.7 mg/dL (8.5-10.1); CHLORIDE 104 mmol/L (98-107)
[2018-04-24 13:28] LABS: ALKALINE PHOSPHATASE 141 U/L (45-117); BILIRUBIN,TOTAL 0.5 mg/dL (0.2-1.0); CREATININE 1.06 mg/dL (0.55-1.02); TOTAL PROTEIN 6.3 g/dL (6.4-8.2); TROPONIN I < 0.015 ng/mL (0.000-0.045)
[2018-04-24 13:38] LABS: ACETONE, SERUM Large (80mg/dL) mg/dL (Negative)
[2018-04-24] MEDS ORDERED: INSULIN REGULAR 100 UNITS/ML, 3ML VIAL ONE (13:57)
[2018-04-24] MEDS ORDERED: INSULIN REGULAR 100 UNITS/ML, 3ML VIAL IVPush ONE (14:00)
[2018-04-24 14:28] LABS: MICROSCOPIC NOT IND
[2018-04-24] MEDS ORDERED: SODIUM CHLORIDE 0.9% 1,000ML IVBOLUS ONE (14:30)
[2018-04-24 14:42] LABS: CULTURE INDICATED? NO
[2018-04-24 16:12] VITALS: BP 118/72
== END 2018-04-24 16:14 | disposition home or self-care (01) ==
LOC: ED 12:27
DX: E86.0 Dehydration (principal); R11.2 Nausea with vomiting, unspecified; E11.65 Type 2 diabetes mellitus with hyperglycemia; I10 Essential (primary) hypertension; J44.9 Chronic obstructive pulmonary disease, unspecified; F32.9 Major depressive disorder, single episode, unspecified; K21.9 Gastro-esophageal reflux disease without esophagitis; E78.5 Hyperlipidemia, unspecified; E03.9 Hypothyroidism, unspecified; Z90.710 Acquired absence of both cervix and uterus
CPT/HCPCS: 36415; 70450; 71045; 80053; 81003; 82010; 82803; 82962; 83690; 84484; 85025; 96361; 96374; 99285; J7030

== ENCOUNTER 2018-05-17 17:59 | Observation (INO) | payer MEDICARE ==
[~2018-05-17] VITALS: Ht 154.9 cm; Wt 47.9 kg
[2018-05-17] MEDS ORDERED: ASPIRIN 81 MG TABLET CHEW PO ONE (18:30)
[2018-05-17] MEDS ORDERED: ASPIRIN 81 MG TABLET CHEW ONE (18:37)
[2018-05-17 18:50] LABS: BASOPHILS # (AUTO) 0.03 x10^3/uL (0-0.1); BASOPHILS % (AUTO) 1 % (0-1); EOSINOPHILS # (AUTO) 0.12 x10^3/uL (0-0.4); EOSINOPHILS % (AUTO) 2 % (1-7); LYMPHOCYTES # (AUTO) 2.31 x10^3/uL (1-3.4); LYMPHOCYTES % (AUTO) 43 % (22-44); MD NO; MEAN CORPUSCULAR HEMOGLOBIN 33.8 pg (27.0-34.8); MEAN CORPUSCULAR HGB CONC 34.5 g/dL (32.4-35.8); MEAN CORPUSCULAR VOLUME 97.7 fL (80-100); MEAN PLATELET VOLUME 8.4 fL (7.4-10.4); MONOCYTES # (AUTO) 0.46 x10^3/uL (0.2-0.8); MONOCYTES % (AUTO) 9 % (2-9); NEUTROPHILS # (AUTO) 2.42 x10^3/uL (1.8-6.8); NEUTROPHILS % (AUTO) 45 % (42-75); PLATELET COUNT 217 x10^3/uL (130-400); RED BLOOD COUNT 3.87 x10^6/uL (3.82-5.3); RED CELL DISTRIBUTION WIDTH 12.9 % (9.6-15.2)
[2018-05-17 19:00] LABS: ALANINE AMINOTRANSFERASE 21 U/L (12-78); ALBUMIN 3.2 g/dL (3.4-5.0); ANION GAP 12 mmol/L (5-15); CALCIUM 8.6 mg/dL (8.5-10.1); CHLORIDE 104 mmol/L (98-107); CREATININE 0.98 mg/dL (0.55-1.02)
[2018-05-17 19:05] LABS: ALKALINE PHOSPHATASE 121 U/L (45-117); BILIRUBIN,TOTAL 0.3 mg/dL (0.2-1.0); TOTAL PROTEIN 6.4 g/dL (6.4-8.2); TROPONIN I < 0.015 ng/mL (0.000-0.045)
[2018-05-17 22:00] VITALS: BP 102/67
[2018-05-17] MEDS ORDERED: hydrALAzine 20 MG/ML, 1ML IVPush PRN (22:00)
[2018-05-17] MEDS ORDERED: NITROGLYCERIN 0.4 MG BOTTLE (25 TABS) SL PRN (22:00)
[2018-05-17] MEDS ORDERED: ONDANSETRON ODT 4 MG PO PRN (22:00)
[2018-05-17] MEDS ORDERED: ACETAMINOPHEN 325 MG TABLET PO PRN (22:00)
[2018-05-17] MEDS ORDERED: morphine SULFATE 10 MG/ML, 1ML IVPush PRN (22:00)
[2018-05-17] MEDS: TOPIRAMATE 100 MG TABLET PO SCH (22:00)
[2018-05-17] MEDS ORDERED: HYDROcodone/APAP 5/325 TABLET PO PRN (22:00)
[2018-05-17] MEDS ORDERED: ONDANSETRON 2MG/ML, 2ML IVPush PRN (22:00)
[2018-05-17] MEDS ORDERED: OXYGEN INH SCH (22:00)
[2018-05-17] MEDS ORDERED: ATORVASTATIN 40 MG TABLET PO SCH (22:00)
[2018-05-17] MEDS ORDERED: DOCUSATE 100 MG CAPSULE PO PRN (22:00)
[2018-05-17] MEDS ORDERED: BISACODYL 10 MG SUPP PR PRN (22:00)
[2018-05-17] MEDS ORDERED: LABETALOL 5MG/ML, 20ML IVPush PRN (22:00)
[2018-05-17] MEDS ORDERED: PROMETHAZINE 25 MG/ML, 1ML IM PRN (22:00)
[2018-05-17] MEDS ORDERED: POLYETHYLENE GLYCOL 17 GM PACKET PO PRN (22:00)
[2018-05-18 00:41] VITALS: BP 112/68
[2018-05-18] MEDS: SODIUM CHLORIDE 0.9% 1,000 ML IV SCH ×2 (00:41→07:59)
[2018-05-18] MEDS ORDERED: TOPIRAMATE 25 MG TABLET ONE (00:55)
[2018-05-18 00:56] LABS: TROPONIN I < 0.015 ng/mL (0.000-0.045)
[2018-05-18] MEDS: VENLAFAXINE 75MG TABLET PO SCH ×2 (01:01→07:57)
[2018-05-18] MEDS: HEPARIN 5,000 UNITS/ML, 1ML SQ SCH ×2 (01:02→07:59)
[2018-05-18 01:04] LABS: CULTURE INDICATED? YES; MICROSCOPIC AUTO
[2018-05-18 01:09] LABS: FREE T4 (FREE THYROXINE) 1.12 ng/dL (0.76-1.46); THYROID STIMULATING HORMONE 6.3 mIU/L (0.358-3.740)
[2018-05-18] MEDS: DIVALPROEX 250 MG TABLET.DR PO SCH ×3 (01:10→16:34)
[2018-05-18 01:22] LABS: HEMOGLOBIN A1C 9.2 % (4.2-6.3)
[2018-05-18] MEDS ORDERED: ASPIRIN 81 MG TABLET EC PO SCH (06:00)
[2018-05-18 06:35] LABS: ALBUMIN 3.2 g/dL (3.4-5.0); ANION GAP 8 mmol/L (5-15); CHLORIDE 106 mmol/L (98-107)
[2018-05-18 06:39] LABS: ALANINE AMINOTRANSFERASE 20 U/L (12-78); ALKALINE PHOSPHATASE 143 U/L (45-117); BILIRUBIN,TOTAL 0.3 mg/dL (0.2-1.0); CHOL/HDL RATIO 3.3; CHOLESTEROL, TOTAL 190 mg/dL (140-239); CREATININE 0.76 mg/dL (0.55-1.02); HDL CHOL % 30 % (28-40); HDL CHOLESTEROL (DIRECT) 57 mg/dL (40-60); LDL CHOLESTEROL,CALCULATED 95 mg/dL (54-169); LDL/HDL RATIO 1.7 (0.5-3.0); TOTAL PROTEIN 6.2 g/dL (6.4-8.2); TRIGLYCERIDES 189 mg/dL (50-200); VLDL CHOLESTEROL 38 mg/dL (0-25)
[2018-05-18 06:41] LABS: TROPONIN I < 0.015 ng/mL (0.000-0.045)
[2018-05-18 06:43] LABS: BASOPHILS # (AUTO) 0.02 x10^3/uL (0-0.1); BASOPHILS % (AUTO) 1 % (0-1); EOSINOPHILS # (AUTO) 0.11 x10^3/uL (0-0.4); EOSINOPHILS % (AUTO) 3 % (1-7); LYMPHOCYTES # (AUTO) 1.86 x10^3/uL (1-3.4); LYMPHOCYTES % (AUTO) 43 % (22-44); MD NO; MEAN CORPUSCULAR HGB CONC 34.5 g/dL (32.4-35.8); MEAN CORPUSCULAR VOLUME 98.6 fL (80-100); MEAN PLATELET VOLUME 8.6 fL (7.4-10.4); MONOCYTES # (AUTO) 0.35 x10^3/uL (0.2-0.8); MONOCYTES % (AUTO) 8 % (2-9); NEUTROPHILS # (AUTO) 2.02 x10^3/uL (1.8-6.8); NEUTROPHILS % (AUTO) 46 % (42-75); PLATELET COUNT 203 x10^3/uL (130-400); RED BLOOD COUNT 3.73 x10^6/uL (3.82-5.3); RED CELL DISTRIBUTION WIDTH 12.9 % (9.6-15.2)
[2018-05-18 07:35] VITALS: BP 148/77
[2018-05-18] MEDS: TOPIRAMATE 100 MG TABLET PO SCH (07:57)
[2018-05-18] MEDS ORDERED: REGADENOSON 0.4 MG/5 ML SYRINGE ONE (08:07)
[2018-05-18] MEDS ORDERED: MULTIVITAMIN 1 TABLET PO SCH (09:00)
[2018-05-18] MEDS ORDERED: PANTOPROZOLE 40MG TABLET PO SCH (09:00)
[2018-05-18] MEDS ORDERED: ASCORBIC ACID 500 MG TABLET PO SCH (09:00)
[2018-05-18] MEDS ORDERED: CHOLECALCIFEROL 1,000 UNIT TABLET PO SCH (09:00)
[2018-05-18] MEDS ORDERED: LEVOTHYROXINE 75 MCG TABLET PO SCH (09:00)
[2018-05-18] MEDS ORDERED: GABAPENTIN 100 MG CAPSULE PO SCH (09:00)
[2018-05-18] MEDS ORDERED: AMINOPHYLLINE 25 MG/ML, 10ML ONE (09:26)
[2018-05-18] MEDS: INSULIN LISPRO 100 UNITS/ML, PEN SQ-INSULIN SCH ×2 (10:18→11:54)
[2018-05-18 13:55] VITALS: BP 128/73
== END 2018-05-18 17:45 | disposition home or self-care (01) ==
LOC: ED 20:48 → EDIP 20:50 → INTOOBSV 20:50 → 5SO 21:29
PROVIDERS: ADMIT Internal Medicine; ATTEND Internal Medicine
DX: R07.89 Other chest pain (principal); R42 Dizziness and giddiness; E03.9 Hypothyroidism, unspecified; E11.65 Type 2 diabetes mellitus with hyperglycemia; E44.0 Moderate protein-calorie malnutrition; E78.5 Hyperlipidemia, unspecified; F32.9 Major depressive disorder, single episode, unspecified; G43.909 Migraine, unspecified, not intractable, without status migrainosus; I10 Essential (primary) hypertension; J44.9 Chronic obstructive pulmonary disease, unspecified; K21.9 Gastro-esophageal reflux disease without esophagitis; Z82.49 Family history of ischemic heart disease and other diseases of the circulatory system; Z83.3 Family history of diabetes mellitus; Z86.73 Personal history of transient ischemic attack (TIA), and cerebral infarction without residual deficits; Z79.899 Other long term (current) drug therapy
CPT/HCPCS: 36415; 71045; 78452; 80053; 80061; 81001; 82962; 83036; 83735; 84439; 84443; 84484; 85025; 87086; 93005; 93017; 96360; 96361; 96372; 99285; A9502; C9898; G0378; J1644; J1815; J2785; J7030; J0280

== ENCOUNTER 2019-01-25 14:50 | Emergency (ER) | payer MEDICARE ==
[~2019-01-25] VITALS: Ht 154.9 cm; Wt 47.8 kg
[2019-01-25 17:24] VITALS: BP 126/88
== END 2019-01-25 18:55 | disposition home or self-care (01) ==
LOC: ED 15:42
DX: R42 Dizziness and giddiness (principal); E11.9 Type 2 diabetes mellitus without complications; J44.9 Chronic obstructive pulmonary disease, unspecified; I10 Essential (primary) hypertension; E78.5 Hyperlipidemia, unspecified; E03.9 Hypothyroidism, unspecified; Z90.89 Acquired absence of other organs; Z90.49 Acquired absence of other specified parts of digestive tract; Z90.710 Acquired absence of both cervix and uterus
CPT/HCPCS: 36415; 70551; 80048; 81003; 82040; 85025; 93005; 99284

== ENCOUNTER 2019-04-08 14:58 | Inpatient (IN) | payer MEDICARE ==
[~2019-04-08] VITALS: Ht 154.9 cm; Wt 51.3 kg
[~2019-04-08 14:58] MED LIST changes: -ASPI-621 PO; +ASPI81TA45 PO
--- NOTE | 2019-04-08 15:25 | NUR ---
Pt assessed, BIB ems with c/o dizziness for 3 weeks, high blood sugar because pt cannot afford her medication (off for past month), polyuria, weakness. Pt lethargic and has mild confusion. Given 700 mls NS by EMS, blood sugar was 585. Finger stick on arrival 490. Will cont to monitor
[2019-04-08] MEDS ORDERED: SODIUM CHLORIDE FLUSH 10ML SYR IVF ONE (16:00)
[2019-04-08] MEDS ORDERED: SODIUM CHLORIDE 0.9% 1,000ML IVBOLUS ONE (16:00)
--- NOTE | 2019-04-08 16:11 | NUR ---
Lab at BS, NS infusing. Pt has no needs at this time will cont to monitor
[2019-04-08 16:18] LABS: MICROSCOPIC AUTO
[2019-04-08 16:22] LABS: CULTURE INDICATED? YES
[2019-04-08 17:04] LABS: BASOPHILS # (AUTO) 0.01 x10^3/uL (0-0.1); BASOPHILS % (AUTO) 0 % (0-1); EOSINOPHILS # (AUTO) 0.01 x10^3/uL (0-0.4); EOSINOPHILS % (AUTO) 0 % (1-7); LYMPHOCYTES # (AUTO) 1.25 x10^3/uL (1-3.4); LYMPHOCYTES % (AUTO) 20 % (22-44); MD NO; MEAN CORPUSCULAR HEMOGLOBIN 30.9 pg (27.0-34.8); MEAN CORPUSCULAR HGB CONC 32.8 g/dL (32.4-35.8); MEAN CORPUSCULAR VOLUME 94.1 fL (80-100); MEAN PLATELET VOLUME 8.9 fL (7.4-10.4); MONOCYTES # (AUTO) 0.89 x10^3/uL (0.2-0.8); MONOCYTES % (AUTO) 14 % (2-9); NEUTROPHILS % (AUTO) 65 % (42-75); PLATELET COUNT 171 x10^3/uL (130-400); RED BLOOD COUNT 4.35 x10^6/uL (3.82-5.3); RED CELL DISTRIBUTION WIDTH 14.4 % (9.6-15.2)
--- NOTE | 2019-04-08 17:05 | NUR ---
Pt given pillow and used bed rosales. Will cont to monitor
[2019-04-08 17:08] LABS: ALBUMIN 2.8 g/dL (3.4-5.0); ANION GAP 13 mmol/L (5-15); CALCIUM 8.4 mg/dL (8.5-10.1); CHLORIDE 101 mmol/L (98-107)
[2019-04-08 17:11] LABS: CREATININE 1.19 mg/dL (0.55-1.02)
[2019-04-08 17:12] LABS: ALANINE AMINOTRANSFERASE 24 U/L (12-78); ALKALINE PHOSPHATASE 94 U/L (45-117); BILIRUBIN,TOTAL 0.6 mg/dL (0.2-1.0); TOTAL PROTEIN 6.5 g/dL (6.4-8.2)
[2019-04-08 17:18] LABS: ACETONE, SERUM Large (80mg/dL) mg/dL (Negative)
[2019-04-08 17:32] LABS: HEMOGLOBIN A1C 10.7 % (4.2-6.3)
[2019-04-08] MEDS ORDERED: INSULIN SINGLE DOSE, ER SQ-INSULIN ONE (17:57)
[2019-04-08] MEDS ORDERED: CEFTRIAXONE PMX 1GM/50ML 50 ML ONE ×2 (17:57→19:06)
[2019-04-08] MEDS ORDERED: CEFTRIAXONE PMX 1GM/50ML 50 ML IV ONE (18:00)
[2019-04-08] MEDS ORDERED: INSULIN REGULAR 100 UNITS/ML, 3ML VIAL SQ-INSULIN ONE (18:00)
[2019-04-08] MEDS ORDERED: LANS15CA5 PO (18:21)
[2019-04-08] MEDS ORDERED: BISACODYL 10 MG SUPP PR PRN (18:30)
[2019-04-08] MEDS ORDERED: POLYETHYLENE GLYCOL 17 GM PACKET PO PRN (18:30)
[2019-04-08] MEDS ORDERED: ACETAMINOPHEN 325 MG TABLET PO PRN (18:30)
[2019-04-08] MEDS ORDERED: ONDANSETRON ODT 4 MG PO PRN (18:30)
--- NOTE | 2019-04-08 18:52 | NUR ---
Report to Charlee RAY
--- NOTE | 2019-04-08 19:02 | NUR ---
ROUNDS COMPLETED. CALL LIGHT IN REACH. NO DISTRESS. NEXT BS CHECK DUE AT 1930.
[2019-04-08] MEDS: SODIUM CHLORIDE 0.9% 1,000 ML IV SCH (19:08)
[2019-04-08] MEDS: CEFTRIAXONE PMX 1GM/50ML 50 ML IV SCH (19:09)
--- NOTE | 2019-04-08 19:40 | NUR ---
ASST TO THE BSC VOID AND BM, REID CARE GIVEN. BACK TO BED. CALL LIGHT IN REACH.
--- NOTE | 2019-04-08 19:42 | NUR ---
NORMAL FORMED LARGE BM.
[2019-04-08] MEDS ORDERED: HEPARIN 5,000 UNITS/ML, 1ML ONE (19:51)
[2019-04-08] MEDS ORDERED: INSULIN LISPRO SINGLE DOSE, ER SQ-INSULIN ONE (19:53)
[2019-04-08] MEDS: INSULIN LISPRO 100 UNITS/ML, PEN SQ-INSULIN SCH (19:55)
[2019-04-08] MEDS: HEPARIN 5,000 UNITS/ML, 1ML SQ SCH (19:55)
--- NOTE | 2019-04-08 19:58 | NUR ---
MEDICATED FOR A BS OF 349 MG/DL SEE EMAR. NEXT BS CHECK 2100.
--- NOTE | 2019-04-08 20:04 | NUR ---
ROCEPHIN IV STOP TIME : 2003. NS INFUSING; TO THE INPT ROOM.
[2019-04-08 21:00] VITALS: BP 115/69
[2019-04-08] MEDS: VENLAFAXINE 75MG TABLET PO SCH (21:25)
[2019-04-08] MEDS: TOPIRAMATE 100 MG TABLET PO SCH (21:25)
[2019-04-08] MEDS: DIVALPROEX 250 MG TABLET.DR PO SCH (21:25)
[2019-04-08] MEDS: ATORVASTATIN 40 MG TABLET PO SCH (21:25)
[2019-04-09 01:09] VITALS: BP 109/63
[2019-04-09] MEDS: SODIUM CHLORIDE 0.9% 1,000 ML IV SCH (04:29)
[2019-04-09] MEDS: ASPIRIN 81 MG TABLET EC PO SCH (04:30)
[2019-04-09] MEDS: HEPARIN 5,000 UNITS/ML, 1ML SQ SCH ×3 (04:30→20:37)
[2019-04-09] MEDS: INSULIN LISPRO 100 UNITS/ML, PEN SQ-INSULIN SCH ×6 (04:30→20:38)
[2019-04-09] MEDS: PANTOPROZOLE 40MG TABLET PO SCH (04:31)
[2019-04-09 06:50] VITALS: BP 140/70
[2019-04-09 07:28] LABS: BASOPHILS # (AUTO) 0.01 x10^3/uL (0-0.1); BASOPHILS % (AUTO) 0 % (0-1); EOSINOPHILS # (AUTO) 0.07 x10^3/uL (0-0.4); EOSINOPHILS % (AUTO) 1 % (1-7); LYMPHOCYTES % (AUTO) 24 % (22-44); MD NO; MEAN CORPUSCULAR HEMOGLOBIN 30.9 pg (27.0-34.8); MEAN CORPUSCULAR HGB CONC 33.3 g/dL (32.4-35.8); MEAN PLATELET VOLUME 8.2 fL (7.4-10.4); MONOCYTES # (AUTO) 0.64 x10^3/uL (0.2-0.8); MONOCYTES % (AUTO) 10 % (2-9); NEUTROPHILS # (AUTO) 4.39 x10^3/uL (1.8-6.8); NEUTROPHILS % (AUTO) 66 % (42-75); PLATELET COUNT 161 x10^3/uL (130-400); RED BLOOD COUNT 4.42 x10^6/uL (3.82-5.3); RED CELL DISTRIBUTION WIDTH 14.6 % (9.6-15.2)
[2019-04-09 07:38] LABS: ALANINE AMINOTRANSFERASE 20 U/L (12-78); ALBUMIN 2.5 g/dL (3.4-5.0); ANION GAP 10 mmol/L (5-15); CALCIUM 8.1 mg/dL (8.5-10.1); CHLORIDE 112 mmol/L (98-107)
[2019-04-09 07:41] LABS: ALKALINE PHOSPHATASE 70 U/L (45-117); BILIRUBIN,TOTAL 0.4 mg/dL (0.2-1.0); TOTAL PROTEIN 5.8 g/dL (6.4-8.2)
[2019-04-09] MEDS ORDERED: LEVOTHYROXINE 75 MCG TABLET ONE (08:14)
[2019-04-09] MEDS: CHOLECALCIFEROL 1,000 UNIT TABLET PO SCH (08:18)
[2019-04-09] MEDS: TOPIRAMATE 100 MG TABLET PO SCH ×2 (08:18→20:38)
[2019-04-09] MEDS: VENLAFAXINE 75MG TABLET PO SCH ×2 (08:18→20:38)
[2019-04-09] MEDS: DIVALPROEX 250 MG TABLET.DR PO SCH ×3 (08:18→20:38)
[2019-04-09] MEDS: ASCORBIC ACID 500 MG TABLET PO SCH (08:19)
[2019-04-09] MEDS: GABAPENTIN 100 MG CAPSULE PO SCH (08:19)
[2019-04-09] MEDS: MULTIVITAMIN 1 TABLET PO SCH (08:19)
[2019-04-09] MEDS: LEVOTHYROXINE 75 MCG TABLET PO SCH (08:20)
[2019-04-09] MEDS ORDERED: SODIUM CHLORIDE 0.45% 1,000 ML IV SCH (08:30)
[2019-04-09] MEDS: SENNA/DOCUSATE TABLET PO SCH (08:47)
[2019-04-09] MEDS ORDERED: LEVOTHYROXINE 75 MCG TABLET PO SCH (09:00)
[2019-04-09] MEDS ORDERED: INSULIN GLARGINE 100 UNITS/ML, PEN SQ-INSULIN SCH ×2 (09:00→21:00)
[2019-04-09 11:39] LABS: FIO2 ROOM AIR %
[2019-04-09 13:50] VITALS: BP 116/69
[2019-04-09] MEDS: CEFTRIAXONE PMX 1GM/50ML 50 ML IV SCH (18:41)
[2019-04-09 19:24] VITALS: BP 119/74
[2019-04-09] MEDS: ATORVASTATIN 40 MG TABLET PO SCH (20:38)
[2019-04-10] MEDS: INSULIN LISPRO 100 UNITS/ML, PEN SQ-INSULIN SCH ×6 (00:28→20:08)
[2019-04-10 01:05] VITALS: BP 107/62
[2019-04-10] MEDS: PANTOPROZOLE 40MG TABLET PO SCH (04:18)
[2019-04-10] MEDS: HEPARIN 5,000 UNITS/ML, 1ML SQ SCH ×3 (04:18→21:51)
[2019-04-10] MEDS: LEVOTHYROXINE 75 MCG TABLET PO SCH (04:18)
[2019-04-10] MEDS: ASPIRIN 81 MG TABLET EC PO SCH (04:18)
[2019-04-10 05:44] LABS: BASOPHILS % (AUTO) 0 % (0-1); EOSINOPHILS # (AUTO) 0.01 x10^3/uL (0-0.4); EOSINOPHILS % (AUTO) 0 % (1-7); LYMPHOCYTES # (AUTO) 0.55 x10^3/uL (1-3.4); LYMPHOCYTES % (AUTO) 10 % (22-44); MD NO; MEAN CORPUSCULAR HEMOGLOBIN 30.7 pg (27.0-34.8); MEAN CORPUSCULAR HGB CONC 33.3 g/dL (32.4-35.8); MEAN CORPUSCULAR VOLUME 92.2 fL (80-100); MEAN PLATELET VOLUME 7.9 fL (7.4-10.4); MONOCYTES # (AUTO) 0.31 x10^3/uL (0.2-0.8); MONOCYTES % (AUTO) 5 % (2-9); NEUTROPHILS # (AUTO) 4.92 x10^3/uL (1.8-6.8); NEUTROPHILS % (AUTO) 85 % (42-75); PLATELET COUNT 137 x10^3/uL (130-400); RED BLOOD COUNT 4.16 x10^6/uL (3.82-5.3); RED CELL DISTRIBUTION WIDTH 14.8 % (9.6-15.2)
[2019-04-10 05:57] LABS: ANION GAP 9 mmol/L (5-15); CALCIUM 7.9 mg/dL (8.5-10.1); CHLORIDE 110 mmol/L (98-107); CREATININE 0.77 mg/dL (0.55-1.02)
[2019-04-10 06:50] VITALS: BP 122/83
[2019-04-10] MEDS: DIVALPROEX 250 MG TABLET.DR PO SCH ×3 (08:25→21:51)
[2019-04-10] MEDS: CHOLECALCIFEROL 1,000 UNIT TABLET PO SCH (08:25)
[2019-04-10] MEDS: GABAPENTIN 100 MG CAPSULE PO SCH (08:25)
[2019-04-10] MEDS: MULTIVITAMIN 1 TABLET PO SCH (08:25)
[2019-04-10] MEDS: VENLAFAXINE 75MG TABLET PO SCH ×2 (08:26→21:51)
[2019-04-10] MEDS: POTASSIUM CHLORIDE 20 MEQ TAB.ER.PRT PO SCH ×2 (08:26→18:23)
[2019-04-10] MEDS: TOPIRAMATE 100 MG TABLET PO SCH ×2 (08:26→21:51)
[2019-04-10] MEDS ORDERED: MAGNESIUM SULFATE PMX 2GM/50ML 50 ML IV ONE (08:30)
[2019-04-10] MEDS: SENNA/DOCUSATE TABLET PO SCH (08:40)
[2019-04-10] MEDS: INSULIN GLARGINE 100 UNITS/ML, PEN SQ-INSULIN SCH ×2 (08:41→21:51)
[2019-04-10] MEDS: ASCORBIC ACID 500 MG TABLET PO SCH (08:47)
[2019-04-10 13:15] VITALS: BP 118/74
[2019-04-10 18:39] VITALS: BP 118/72
[2019-04-10] MEDS: CEFTRIAXONE PMX 1GM/50ML 50 ML IV SCH (20:08)
[2019-04-10] MEDS: ATORVASTATIN 40 MG TABLET PO SCH (21:51)
[2019-04-11] MEDS: INSULIN LISPRO 100 UNITS/ML, PEN SQ-INSULIN SCH ×4 (00:05→13:37)
[2019-04-11 00:20] VITALS: BP 121/75
[2019-04-11] MEDS: HEPARIN 5,000 UNITS/ML, 1ML SQ SCH ×2 (05:17→13:36)
[2019-04-11] MEDS: PANTOPROZOLE 40MG TABLET PO SCH (05:17)
[2019-04-11] MEDS: ASPIRIN 81 MG TABLET EC PO SCH (05:17)
[2019-04-11] MEDS: LEVOTHYROXINE 75 MCG TABLET PO SCH (05:17)
[2019-04-11 08:28] VITALS: BP 107/68
[2019-04-11] MEDS: VENLAFAXINE 75MG TABLET PO SCH (09:54)
[2019-04-11] MEDS: GABAPENTIN 100 MG CAPSULE PO SCH (09:54)
[2019-04-11] MEDS: DIVALPROEX 250 MG TABLET.DR PO SCH (09:54)
[2019-04-11] MEDS: CHOLECALCIFEROL 1,000 UNIT TABLET PO SCH (09:55)
[2019-04-11] MEDS: TOPIRAMATE 100 MG TABLET PO SCH (09:55)
[2019-04-11] MEDS: MULTIVITAMIN 1 TABLET PO SCH (09:55)
[2019-04-11] MEDS: ASCORBIC ACID 500 MG TABLET PO SCH (09:55)
[2019-04-11] MEDS: SENNA/DOCUSATE TABLET PO SCH (10:00)
[2019-04-11] MEDS: INSULIN GLARGINE 100 UNITS/ML, PEN SQ-INSULIN SCH (10:03)
[2019-04-11 12:36] VITALS: BP 107/72
[2019-04-11] MEDS ORDERED: INSU100I13 SQ-INSULIN (13:15)
[2019-04-23] MEDS ORDERED: POTA20TA6 PO (16:40)
== END 2019-04-11 16:29 | DRG 637 ==
LOC: ED 17:13 → EDIP 18:56 → 4EST 20:33
PROVIDERS: ADMIT Internal Medicine; ATTEND Internal Medicine
DX: E11.10 Type 2 diabetes mellitus with ketoacidosis without coma (principal); G93.41 Metabolic encephalopathy; E87.1 Hypo-osmolality and hyponatremia; R47.01 Aphasia; N30.90 Cystitis, unspecified without hematuria; B96.20 Unspecified Escherichia coli [E. coli] as the cause of diseases classified elsewhere; E03.9 Hypothyroidism, unspecified; E78.5 Hyperlipidemia, unspecified; E86.0 Dehydration; F32.9 Major depressive disorder, single episode, unspecified; G43.909 Migraine, unspecified, not intractable, without status migrainosus; J45.909 Unspecified asthma, uncomplicated; K21.9 Gastro-esophageal reflux disease without esophagitis; Z82.49 Family history of ischemic heart disease and other diseases of the circulatory system; Z83.3 Family history of diabetes mellitus; Z86.73 Personal history of transient ischemic attack (TIA), and cerebral infarction without residual deficits; Z90.710 Acquired absence of both cervix and uterus; Z91.14 Patient's other noncompliance with medication regimen; Z90.49 Acquired absence of other specified parts of digestive tract; Z88.0 Allergy status to penicillin; Z88.8 Allergy status to other drugs, medicaments and biological substances; Z91.013 Allergy to seafood; Z91.012 Allergy to eggs
CPT/HCPCS: 36415; 36600; 70450; 70551; 71045; 80048; 80053; 81001; 82010; 82800; 82803; 82962; 83036; 83735; 84100; 84443; 85025; 87077; 87086; 87186; 93005; 96361; 96365; 96372; G0378; J0696; J1644; 92523-GN; J1815; J3475; J7030

== ENCOUNTER 2019-05-16 11:07 | Inpatient (IN) | payer MEDICARE ==
[~2019-05-16] VITALS: Ht 154.9 cm; Wt 48.2 kg
[~2019-05-16 11:07] MED LIST changes: +INSU100I13 SQ-INSULIN; +LANS15CA5 PO; +POTA20TA6 PO
[2019-05-16] MEDS ORDERED: SODIUM CHLORIDE 0.9% 1,000 ML IV ONE (11:22)
[2019-05-16] MEDS ORDERED: SODIUM CHLORIDE FLUSH 10ML SYR IVF ONE (11:30)
--- NOTE | 2019-05-16 11:56 | NUR ---
IV ESTABLISHED AND ONE SET OF BC DRAWN. LAB AT BEDSIDE FOR LABS AND 2ND BC.
--- NOTE | 2019-05-16 12:15 | NUR ---
RECEIVED REPORT FROM JOY RAY. ASSUMING CARE AT THIS TIME.
--- NOTE | 2019-05-16 12:32 | NUR ---
URINE COLLECTED VIA STRAIGHT CATH AND TAKEN TO LAB.
--- NOTE | 2019-05-16 12:32 | NUR ---
PT RESTING ON [place]. FALL PRECAUTIONS IN PLACE. CALL LIGHT IN REACH.
[2019-05-16 12:33] LABS: ALBUMIN 2.5 g/dL (3.4-5.0); ANION GAP 12 mmol/L (5-15); CALCIUM 7.9 mg/dL (8.5-10.1); CHLORIDE 99 mmol/L (98-107)
[2019-05-16 12:35] LABS: BASOPHILS # (AUTO) 0.02 x10^3/uL (0-0.1); BASOPHILS % (AUTO) 0 % (0-1); EOSINOPHILS # (AUTO) 0.08 x10^3/uL (0-0.4); EOSINOPHILS % (AUTO) 1 % (1-7); LYMPHOCYTES # (AUTO) 1.07 x10^3/uL (1-3.4); LYMPHOCYTES % (AUTO) 9 % (22-44); MD NO; MEAN CORPUSCULAR HEMOGLOBIN 31.1 pg (27.0-34.8); MEAN CORPUSCULAR HGB CONC 32.6 g/dL (32.4-35.8); MEAN CORPUSCULAR VOLUME 95.3 fL (80-100); MONOCYTES # (AUTO) 1.05 x10^3/uL (0.2-0.8); MONOCYTES % (AUTO) 9 % (2-9); NEUTROPHILS # (AUTO) 9.47 x10^3/uL (1.8-6.8); NEUTROPHILS % (AUTO) 81 % (42-75); PLATELET COUNT 261 x10^3/uL (130-400); RED BLOOD COUNT 4.39 x10^6/uL (3.82-5.3); RED CELL DISTRIBUTION WIDTH 16.5 % (9.6-15.2)
[2019-05-16 12:36] LABS: ALANINE AMINOTRANSFERASE 13 U/L (12-78); ALKALINE PHOSPHATASE 68 U/L (45-117); BILIRUBIN,TOTAL 0.2 mg/dL (0.2-1.0); TOTAL PROTEIN 6.2 g/dL (6.4-8.2)
[2019-05-16] MEDS ORDERED: SODIUM CHLORIDE 0.9% 1,000ML IVBOLUS ONE (13:00)
[2019-05-16] MEDS ORDERED: POTASSIUM CHLORIDE 40 MEQ in SODIUM CHLORIDE 0.9% 500 ML IV ONE ×2 (13:00→14:00)
[2019-05-16 13:02] LABS: CULTURE INDICATED? YES; MICROSCOPIC INDICATED
[2019-05-16] MEDS ORDERED: CEFTRIAXONE PMX 1GM/50ML 50 ML IV ONE (13:30)
--- NOTE | 2019-05-16 13:41 | NUR ---
IVF RUNNING PER AUG. PT RESTING ON [facility]. FAMILY AT BEDSIDE.
[2019-05-16 13:48] LABS: ACETONE, SERUM Negative (Negative)
[2019-05-16] MEDS ORDERED: MAGNESIUM SULFATE 3 GM in SODIUM CHLORIDE 0.9% 100 ML IV ONE (14:00)
[2019-05-16] MEDS ORDERED: LABETALOL 5MG/ML, 20ML IVPush PRN (14:00)
--- NOTE | 2019-05-16 14:25 | NUR ---
REPORT GIVEN TO KEIRA RAY
[2019-05-16] MEDS ORDERED: POTASSIUM CHLORIDE 20 MEQ TAB.ER.PRT PO ONE ×2 (14:30→21:00)
[2019-05-16] MEDS ORDERED: GLUCAGON 1 MG IM PRN (14:30)
[2019-05-16] MEDS ORDERED: DEXTROSE 50%, 50ML SYRINGE IVPush PRN (14:30)
[2019-05-16] MEDS ORDERED: DEXTROSE 4 GM TAB.CHEW PO PRN (14:30)
[2019-05-16 14:41] LABS: FREE T4 (FREE THYROXINE) 1.59 ng/dL (0.76-1.46)
[2019-05-16 16:37] LABS: CLOSTRIDIUM DIFFICILE ANTIGEN POSITIVE; CLOSTRIDIUM DIFFICILE TOXIN POSITIVE (Negative)
[2019-05-16] MEDS: ENOXAPARIN 40 MG/0.4 ML SQ SCH (17:47)
[2019-05-16] MEDS ORDERED: POTASSIUM CHLORIDE 20 MEQ in SODIUM CHLORIDE 0.9% 1,000 ML IV SCH (18:00)
[2019-05-16] MEDS: VANCOMYCIN 50 MG/ML ORAL SUSP PO SCH ×2 (18:21→23:03)
[2019-05-16] MEDS: INSULIN LISPRO 100 UNITS/ML, PEN SQ-INSULIN SCH ×2 (18:22→20:42)
[2019-05-16] MEDS: SULFAMETH./TRIMETHOPRIM DS 800MG/160MG TABLET PO SCH (20:42)
[2019-05-16] MEDS: SODIUM CHLORIDE FLUSH 10ML SYR IVF SCH (20:42)
[2019-05-16 21:00] VITALS: BP 120/79
[2019-05-17 00:17] VITALS: BP 140/78
[2019-05-17] MEDS: VANCOMYCIN 50 MG/ML ORAL SUSP PO SCH ×3 (05:15→18:50)
[2019-05-17 06:03] LABS: BASOPHILS # (AUTO) 0.01 x10^3/uL (0-0.1); BASOPHILS % (AUTO) 0 % (0-1); EOSINOPHILS # (AUTO) 0.07 x10^3/uL (0-0.4); EOSINOPHILS % (AUTO) 1 % (1-7); LYMPHOCYTES # (AUTO) 0.82 x10^3/uL (1-3.4); LYMPHOCYTES % (AUTO) 7 % (22-44); MD NO; MEAN CORPUSCULAR HEMOGLOBIN 31.1 pg (27.0-34.8); MEAN CORPUSCULAR HGB CONC 32.4 g/dL (32.4-35.8); MEAN CORPUSCULAR VOLUME 95.9 fL (80-100); MEAN PLATELET VOLUME 8.2 fL (7.4-10.4); MONOCYTES # (AUTO) 1.32 x10^3/uL (0.2-0.8); MONOCYTES % (AUTO) 12 % (2-9); NEUTROPHILS % (AUTO) 81 % (42-75); PLATELET COUNT 225 x10^3/uL (130-400); RED BLOOD COUNT 4.57 x10^6/uL (3.82-5.3); RED CELL DISTRIBUTION WIDTH 16.8 % (9.6-15.2)
[2019-05-17 06:13] LABS: CHLORIDE 105 mmol/L (98-107)
[2019-05-17 06:28] LABS: ALANINE AMINOTRANSFERASE 14 U/L (12-78); ALBUMIN 2.4 g/dL (3.4-5.0); ALKALINE PHOSPHATASE 68 U/L (45-117); ANION GAP 12 mmol/L (5-15); BILIRUBIN,TOTAL 0.3 mg/dL (0.2-1.0); CALCIUM 8.1 mg/dL (8.5-10.1); CREATININE 0.79 mg/dL (0.55-1.02)
[2019-05-17 07:09] VITALS: BP 143/75
[2019-05-17] MEDS ORDERED: LACTATED RINGERS 1,000 ML IV SCH (07:30)
[2019-05-17] MEDS: LEVOTHYROXINE 75 MCG TABLET PO SCH (10:24)
[2019-05-17] MEDS: INSULIN LISPRO 100 UNITS/ML, PEN SQ-INSULIN SCH ×4 (10:24→21:00)
[2019-05-17] MEDS: SULFAMETH./TRIMETHOPRIM DS 800MG/160MG TABLET PO SCH ×2 (10:24→21:59)
[2019-05-17] MEDS: SODIUM CHLORIDE FLUSH 10ML SYR IVF SCH ×2 (10:29→22:00)
[2019-05-17 12:00] VITALS: BP 108/64
[2019-05-17] MEDS: ENOXAPARIN 40 MG/0.4 ML SQ SCH (12:44)
[2019-05-17 21:20] VITALS: BP 136/71
[2019-05-17 23:41] VITALS: BP 111/60
[2019-05-18] MEDS: VANCOMYCIN 50 MG/ML ORAL SUSP PO SCH ×4 (01:46→19:37)
[2019-05-18 04:52] LABS: MEAN CORPUSCULAR HEMOGLOBIN 31.2 pg (27.0-34.8); MEAN CORPUSCULAR HGB CONC 32.8 g/dL (32.4-35.8); MEAN CORPUSCULAR VOLUME 95.1 fL (80-100); MEAN PLATELET VOLUME 8.7 fL (7.4-10.4); PLATELET COUNT 209 x10^3/uL (130-400); RED BLOOD COUNT 4.17 x10^6/uL (3.82-5.3)
[2019-05-18 04:58] LABS: ALBUMIN 2.1 g/dL (3.4-5.0); ANION GAP 8 mmol/L (5-15); CALCIUM 8.2 mg/dL (8.5-10.1); CHLORIDE 106 mmol/L (98-107)
[2019-05-18 05:02] LABS: ALANINE AMINOTRANSFERASE 13 U/L (12-78); ALKALINE PHOSPHATASE 68 U/L (45-117); BILIRUBIN,TOTAL 0.4 mg/dL (0.2-1.0); CREATININE 0.85 mg/dL (0.55-1.02); TOTAL PROTEIN 5.7 g/dL (6.4-8.2)
[2019-05-18 05:23] LABS: MD YES
[2019-05-18 05:25] LABS: ANISOCYTOSIS 1+; BAND#(MANUAL) 0.49 x10^3/uL; BANDS%(MANUAL) 4 % (0-7); LYMPH#(MANUAL) 1.46 x10^3/uL (1-3.4); LYMPHS% (MANUAL) 12 % (22-44); METAMYELOCYTES# (MANUAL) 0.12 x10^3/uL (0-0); METAMYELOCYTES% (MANUAL) 1 % (0-1); MONOS% (MANUAL) 9 % (2-9); MYELOCYTES# (MANUAL) 0.12 x10^3/uL (0-0); MYELOCYTES% (MANUAL) 1 % (0-0); OVALOCYTES 1+; POLYCHROMASIA 1+; SEG#(MANUAL) 8.91 x10^3/uL (1.8-6.8); SEGS% (MANUAL) 73 % (42-75)
[2019-05-18 05:27] LABS: <PLATELET ESTIMATE> ADEQUATE; <PLT MORPHOLOGY> NORMAL PLT MORPH
[2019-05-18] MEDS ORDERED: MAGNESIUM SULFATE PMX 2GM/50ML 50 ML IV ONE (07:00)
[2019-05-18 07:30] VITALS: BP 110/54
[2019-05-18] MEDS: INSULIN LISPRO 100 UNITS/ML, PEN SQ-INSULIN SCH ×4 (08:58→19:37)
[2019-05-18] MEDS: SODIUM CHLORIDE FLUSH 10ML SYR IVF SCH ×2 (08:59→19:38)
[2019-05-18] MEDS: NEUTRA PHOS K 250 MG TABLET PO SCH ×2 (09:00→19:37)
[2019-05-18] MEDS: LEVOTHYROXINE 75 MCG TABLET PO SCH (09:01)
[2019-05-18] MEDS: FLUCONAZOLE 200 MG/100 ML 100 ML IV SCH (12:12)
[2019-05-18] MEDS: ENOXAPARIN 40 MG/0.4 ML SQ SCH (13:34)
[2019-05-18] MEDS: ACETAMINOPHEN 325 MG TABLET PO PRN (13:34)
[2019-05-18 13:50] VITALS: BP 126/67
[2019-05-18 19:44] VITALS: BP 125/61
[2019-05-19 01:16] VITALS: BP 131/63
[2019-05-19] MEDS: VANCOMYCIN 50 MG/ML ORAL SUSP PO SCH ×4 (02:22→20:13)
[2019-05-19 06:51] VITALS: BP 125/69
[2019-05-19] MEDS: LEVOTHYROXINE 75 MCG TABLET PO SCH (09:28)
[2019-05-19] MEDS: SODIUM CHLORIDE FLUSH 10ML SYR IVF SCH ×2 (09:33→20:14)
[2019-05-19] MEDS: INSULIN LISPRO 100 UNITS/ML, PEN SQ-INSULIN SCH ×4 (09:33→20:14)
[2019-05-19 12:24] VITALS: BP 128/86
[2019-05-19] MEDS: ENOXAPARIN 40 MG/0.4 ML SQ SCH (13:53)
[2019-05-19] MEDS: FLUCONAZOLE 200 MG/100 ML 100 ML IV SCH (13:54)
[2019-05-19] MEDS ORDERED: METOPROLOL 1 MG/ML, 5ML IVPush ONE (17:30)
[2019-05-19 18:59] VITALS: BP 124/66
[2019-05-19] MEDS: METOPROLOL TARTRATE 25 MG TABLET PO SCH (20:13)
[2019-05-19] MEDS: INSULIN GLARGINE 100 UNITS/ML, PEN SQ-INSULIN SCH (21:00)
[2019-05-20 00:44] VITALS: BP 115/74
[2019-05-20] MEDS: VANCOMYCIN 50 MG/ML ORAL SUSP PO SCH ×4 (02:06→20:02)
[2019-05-20 04:40] LABS: BASOPHILS # (AUTO) 0.09 x10^3/uL (0-0.1); BASOPHILS % (AUTO) 1 % (0-1); EOSINOPHILS % (AUTO) 1 % (1-7); LYMPHOCYTES # (AUTO) 1.57 x10^3/uL (1-3.4); LYMPHOCYTES % (AUTO) 17 % (22-44); MD NO; MEAN CORPUSCULAR HEMOGLOBIN 31.1 pg (27.0-34.8); MEAN CORPUSCULAR HGB CONC 32.6 g/dL (32.4-35.8); MEAN CORPUSCULAR VOLUME 95.5 fL (80-100); MEAN PLATELET VOLUME 7.5 fL (7.4-10.4); MONOCYTES # (AUTO) 0.73 x10^3/uL (0.2-0.8); MONOCYTES % (AUTO) 8 % (2-9); NEUTROPHILS % (AUTO) 74 % (42-75); PLATELET COUNT 277 x10^3/uL (130-400); RED BLOOD COUNT 3.84 x10^6/uL (3.82-5.3); RED CELL DISTRIBUTION WIDTH 16.6 % (9.6-15.2)
[2019-05-20] MEDS: METOPROLOL TARTRATE 25 MG TABLET PO SCH ×2 (04:45→16:58)
[2019-05-20] MEDS: LEVOTHYROXINE 75 MCG TABLET PO SCH (04:45)
[2019-05-20 04:48] LABS: ANION GAP 11 mmol/L (5-15); CALCIUM 8.2 mg/dL (8.5-10.1); CHLORIDE 102 mmol/L (98-107); CREATININE 0.59 mg/dL (0.55-1.02)
[2019-05-20] MEDS: ACETAMINOPHEN 325 MG TABLET PO PRN ×3 (06:46→22:10)
[2019-05-20 06:57] VITALS: BP 130/73
[2019-05-20] MEDS: SODIUM CHLORIDE FLUSH 10ML SYR IVF SCH ×2 (08:30→20:03)
[2019-05-20] MEDS: INSULIN LISPRO 100 UNITS/ML, PEN SQ-INSULIN SCH ×4 (08:30→20:03)
[2019-05-20] MEDS ORDERED: MAGNESIUM SULFATE PMX 2GM/50ML 50 ML IV ONE (10:30)
[2019-05-20] MEDS ORDERED: POTASSIUM CHLORIDE 40 MEQ in SODIUM CHLORIDE 0.9% 500 ML IV ONE (10:30)
[2019-05-20] MEDS: FLUCONAZOLE 200 MG/100 ML 100 ML IV SCH (11:43)
[2019-05-20 12:55] VITALS: BP 119/68
[2019-05-20] MEDS: ENOXAPARIN 40 MG/0.4 ML SQ SCH (13:23)
[2019-05-20 18:32] VITALS: BP 95/55
[2019-05-20 19:33] VITALS: BP 103/58
[2019-05-20] MEDS: INSULIN GLARGINE 100 UNITS/ML, PEN SQ-INSULIN SCH (20:03)
[2019-05-21 01:05] VITALS: BP 109/63
[2019-05-21] MEDS: VANCOMYCIN 50 MG/ML ORAL SUSP PO SCH ×4 (02:44→20:05)
[2019-05-21] MEDS: METOPROLOL TARTRATE 25 MG TABLET PO SCH ×2 (04:52→17:14)
[2019-05-21] MEDS: LEVOTHYROXINE 75 MCG TABLET PO SCH (04:52)
[2019-05-21 05:22] LABS: ANION GAP 8 mmol/L (5-15); CALCIUM 8.5 mg/dL (8.5-10.1); CHLORIDE 107 mmol/L (98-107)
[2019-05-21 06:50] VITALS: BP 123/72
[2019-05-21] MEDS: SODIUM CHLORIDE FLUSH 10ML SYR IVF SCH ×2 (09:12→20:08)
[2019-05-21] MEDS: INSULIN LISPRO 100 UNITS/ML, PEN SQ-INSULIN SCH ×4 (09:12→20:05)
[2019-05-21] MEDS ORDERED: POTASSIUM CHLORIDE 40 MEQ in SODIUM CHLORIDE 0.9% 500 ML IV ONE (09:30)
[2019-05-21] MEDS: ACETAMINOPHEN 325 MG TABLET PO PRN ×2 (10:40→18:17)
[2019-05-21] MEDS: FLUCONAZOLE 200 MG/100 ML 100 ML IV SCH (11:38)
[2019-05-21 13:10] VITALS: BP 144/76
[2019-05-21] MEDS: ENOXAPARIN 40 MG/0.4 ML SQ SCH (14:23)
[2019-05-21 17:17] VITALS: BP 117/63
[2019-05-21 19:06] VITALS: BP 106/65
[2019-05-21] MEDS: INSULIN GLARGINE 100 UNITS/ML, PEN SQ-INSULIN SCH (20:06)
[2019-05-22 00:38] VITALS: BP 110/68
[2019-05-22] MEDS: VANCOMYCIN 50 MG/ML ORAL SUSP PO SCH ×3 (02:02→15:18)
[2019-05-22] MEDS: METOPROLOL TARTRATE 25 MG TABLET PO SCH ×2 (06:08→17:34)
[2019-05-22] MEDS: LEVOTHYROXINE 75 MCG TABLET PO SCH (06:08)
[2019-05-22 08:29] VITALS: BP 111/62
[2019-05-22] MEDS: ACETAMINOPHEN 325 MG TABLET PO PRN ×2 (08:30→15:18)
[2019-05-22] MEDS: INSULIN LISPRO 100 UNITS/ML, PEN SQ-INSULIN SCH ×3 (08:31→16:45)
[2019-05-22] MEDS: SODIUM CHLORIDE FLUSH 10ML SYR IVF SCH (08:36)
[2019-05-22] MEDS: FLUCONAZOLE 200 MG/100 ML 100 ML IV SCH (11:48)
[2019-05-22 14:03] VITALS: BP 133/65
[2019-05-22] MEDS: ENOXAPARIN 40 MG/0.4 ML SQ SCH (15:17)
[2019-05-22] MEDS ORDERED: VANC125C3 PO (15:46)
== END 2019-05-22 18:14 | disposition home health service (06) | DRG 371 ==
LOC: ED 12:44 → EDIP 13:41 → 4WST 14:38
PROVIDERS: ADMIT Internal Medicine; ATTEND Internal Medicine
PROC: 0T9B70Z Drainage of Bladder with Drainage Device, Via Natural or Artificial Opening (ICD-10-PCS; principal; 2019-05-16)
DX: A04.72 Enterocolitis due to Clostridium difficile, not specified as recurrent (principal); G93.41 Metabolic encephalopathy; N39.0 Urinary tract infection, site not specified; I50.32 Chronic diastolic (congestive) heart failure; E87.6 Hypokalemia; R94.31 Abnormal electrocardiogram [ECG] [EKG]; E03.9 Hypothyroidism, unspecified; F32.9 Major depressive disorder, single episode, unspecified; J44.9 Chronic obstructive pulmonary disease, unspecified; K21.9 Gastro-esophageal reflux disease without esophagitis; E11.40 Type 2 diabetes mellitus with diabetic neuropathy, unspecified; Z66 Do not resuscitate; Z86.73 Personal history of transient ischemic attack (TIA), and cerebral infarction without residual deficits
CPT/HCPCS: 36415; 71045; 80048; 80053; 81001; 82010; 82800; 82962; 83605; 83735; 84100; 84439; 84443; 85025; 87040; 87086; 87106; 87186; 87324; 93005; 93306; 96361; 96374; G0378; J1650; J3370; J3475; J3480; J1450; J1815; J7030; J7040; J7120

== ENCOUNTER → 2019-05-27 | Outpatient (CLI) | payer MEDICARE ==
[~2019-05-27] MED LIST changes: +VANC125C3 PO
== END | disposition home or self-care (01) ==
LOC: RAD 14:58
PROVIDERS: ATTEND Physician Assistant Surgical
DX: S32.592A Other specified fracture of left pubis, initial encounter for closed fracture (principal); M47.817 Spondylosis without myelopathy or radiculopathy, lumbosacral region; M25.552 Pain in left hip; E11.9 Type 2 diabetes mellitus without complications; I63.9 Cerebral infarction, unspecified; I50.9 Heart failure, unspecified; Z88.0 Allergy status to penicillin; Z88.5 Allergy status to narcotic agent; Z91.013 Allergy to seafood; X58.XXXA Exposure to other specified factors, initial encounter; Y93.89 Activity, other specified; Y92.89 Other specified places as the place of occurrence of the external cause; Y99.8 Other external cause status
CPT/HCPCS: 72192

== ENCOUNTER → 2020-03-04 | Outpatient (CLI) | payer MEDICARE ==
[~2020-03-04] MED LIST changes: +ASCO100018 PO; -ASCO10004 PO; +MONT10TA11 PO; -MONT10TA9 PO; -PANT40TA5 PO; +PANT40TA6 PO; +SIMV10TA18 PO; -SIMV10TA3 PO
== END | disposition home or self-care (01) ==
LOC: RAD 11:40
PROVIDERS: ATTEND Physician Assistant Surgical
DX: M25.551 Pain in right hip (principal)

== ENCOUNTER → 2020-03-20 | Outpatient (CLI) | payer MEDICARE | END | disposition home or self-care (01) | LOC: CFH 10:35 | PROVIDERS: ATTEND Orthopaedic Surgery | DX: S32.512D Fracture of superior rim of left pubis, subsequent encounter for fracture with routine healing (principal); M16.0 Bilateral primary osteoarthritis of hip; M81.0 Age-related osteoporosis without current pathological fracture; M11.252 Other chondrocalcinosis, left hip; I70.0 Atherosclerosis of aorta; M11.251 Other chondrocalcinosis, right hip; X58.XXXD Exposure to other specified factors, subsequent encounter | CPT/HCPCS: 72192 ==